=== PATIENT | male | born 1945 | race Caucasian/White ===

== ENCOUNTER → 2016-10-28 | Outpatient (REF) | payer MEDICARE ==
[2016-10-28 17:51] LABS: PERCENT SATURATION 26.5 % (19.7-37.4); TOTAL IRON BINDING CAPACITY 324 UG/DL (250-450)
[2016-10-28 17:55] LABS: FOLATE 10.7 NG/ML; VITAMIN B12 LEVEL 610 PG/ML
== END ==
LOC: M LAB REF 16:47
PROVIDERS: ATTEND Internal Medicine
DX: D64.9 Anemia, unspecified (principal); Z01.89 Encounter for other specified special examinations

== ENCOUNTER → 2016-12-31 | Outpatient (CLI) | payer MEDICARE ==
[~2016-12-31] VITALS: Ht 167.6 cm; Wt 79.4 kg
[~2016-12-31] MED LIST: ALLO15TA PO; AMLO5TAB2 PO; ASPI1TAB PO; BIMA01SOL OU; CALC1CAP31 PO; CARV6.25 PO; CRES10TA32 PO; EDARBI PB; FERR325T3 PO; FURO40TA2 PO; GABA-282 PO; HUMA100I5 SC; HYDR-3911 PO; INSULANT SC; ISOS60TA2 PO; LIDOCAINE 2% INJ 100 MG/5 ML SDV (FOR ANES.) As Ordered ONE; NS 1,000 ML IV ONE; OMEP40CA2 PO; PROPOFOL 500 MG/50 ML VIAL As Ordered ONE; VITA100067 PO; ZOLO50TA PO
--- NOTE | 2016-12-31 12:56 | ROOR ---
Patient Name: Wicho Haney Procedure Date: 12/31/2016 12:34 PM Date of : 1945 Age: 71 Room: [facility] Gender: Male Note Status: Finalized Procedure: Upper Endoscopy + Biopsies + SBB Indications: Iron deficiency anemia, Follow-up of Saeed's esophagus Providers: Jaylon Pelletier MD Referring MD: ELLIOTT PELLETIER JR, MD Requesting Provider: Medicines: Monitored Anesthesia Care Complications: No immediate complications. Procedure: Pre-Anesthesia Assessment: - The heart rate, respiratory rate, oxygen saturations, blood pressure, adequacy of pulmonary ventilation, and response to care were monitored throughout the procedure. The Endoscope was introduced through the mouth, and advanced to the second part of duodenum. The upper GI endoscopy was accomplished without difficulty. The patient tolerated the procedure well. Findings: The Z-line was irregular and was found 40 cm from the incisors. Multiple biopsies were obtained with cold forceps for evaluation to rule out Saeed's Esophagus randomly at the gastroesophageal junction. A medium-sized hiatal hernia was present. No other significant abnormalities were identified in a careful examination of the stomach. The exam of the duodenum was otherwise normal. Biopsies for histology were taken with a cold forceps in the first portion of the duodenum for evaluation of celiac disease. The exam was otherwise without abnormality. Impression: - Z-line irregular, 40 cm from the incisors. - Medium-sized hiatal hernia. - The examination was otherwise normal. - Multiple biopsies were obtained at the gastroesophageal junction. - Biopsies were taken with a cold forceps for evaluation of celiac disease. - The examination was otherwise normal. Recommendation: - Patient has a contact number available for emergencies. The signs and symptoms of potential delayed complications were discussed with the patient. Return to normal activities tomorrow. Written discharge instructions were provided to the patient. - High fiber diet. - Discharge patient to home. - Continue present medications. - Await pathology results. - Telephone GI clinic for pathology results in 1 week. - Follow an antireflux regimen. - Return to referring physician. - The findings and recommendations were discussed with the patient's family. Jaylon Pelletier MD Jaylon Pelletier MD 12/31/2016 12:56:29 PM This report has been signed electronically. Number of Addenda: 0 Note Initiated On: 12/31/2016 12:34 PM Estimated Blood Loss: Estimated blood loss: none.
--- NOTE | 2016-12-31 13:24 | ROOR ---
Patient Name: Wicho Haney Procedure Date: 12/31/2016 12:34 PM Date of : 1945 Age: 71 Room: [facility] Gender: Male Note Status: Finalized Procedure: Total Colonoscopy to Cecum + ileoscopy + Biopsy Polypectomy Indications: Iron deficiency anemia Providers: Jaylon Pelletier MD Referring MD: ELLIOTT PELLETIER JR, MD Requesting Provider: Medicines: Monitored Anesthesia Care Complications: No immediate complications. Procedure: Pre-Anesthesia Assessment: - The heart rate, respiratory rate, oxygen saturations, blood pressure, adequacy of pulmonary ventilation, and response to care were monitored throughout the procedure. The Colonoscope was introduced through the anus and advanced to the terminal ileum, with identification of the appendiceal orifice and IC valve. The colonoscopy was performed without difficulty. The patient tolerated the procedure well. The quality of the bowel preparation was excellent. Findings: The perianal and digital rectal examinations were normal. Non-bleeding internal hemorrhoids were found during retroflexion. The hemorrhoids were small and Grade I (internal hemorrhoids that do not prolapse). A small polyp was found in the cecum. The polyp was sessile. The polyp was removed with a cold biopsy forceps. Resection and retrieval were complete. Two sessile polyps were found in the hepatic flexure. The polyps were small in size. These polyps were removed with a cold biopsy forceps. Resection and retrieval were complete. The exam was otherwise without abnormality on direct and retroflexion views. The terminal ileum appeared normal. Impression: - Non-bleeding internal hemorrhoids. - One small polyp in the cecum, removed with a cold biopsy forceps. Resected and retrieved. - Two small polyps at the hepatic flexure, removed with a cold biopsy forceps. Resected and retrieved. - The examination was otherwise normal on direct and retroflexion views. - The examined portion of the ileum was normal. - The exam was otherwise normal to the cecum. Recommendation: - Patient has a contact number available for emergencies. The signs and symptoms of potential delayed complications were discussed with the patient. Return to normal activities tomorrow. Written discharge instructions were provided to the patient. - High fiber diet. - Discharge patient to home. - Continue present medications. - Await pathology results. - Telephone GI clinic for pathology results in 1 week. - Repeat colonoscopy in 5 years for surveillance based on pathology results. - Return to referring physician. - The findings and recommendations were discussed with the patient's family. Jaylon Pelletier MD Jaylon Pelletier MD 12/31/2016 1:24:02 PM This report has been signed electronically. Number of Addenda: 0 Note Initiated On: 12/31/2016 12:34 PM Estimated Blood Loss: Estimated blood loss: none.
[2016-12-31 13:53] VITALS: BP 131/65
== END | disposition home or self-care (01) ==
LOC: M OPP 11:50
PROVIDERS: ATTEND Internal Medicine Gastroenterology
DX: D50.9 Iron deficiency anemia, unspecified (principal); D12.0 Benign neoplasm of cecum; D12.3 Benign neoplasm of transverse colon; K64.0 First degree hemorrhoids; K22.8 Other specified diseases of esophagus; K44.9 Diaphragmatic hernia without obstruction or gangrene; K22.70 Barrett's esophagus without dysplasia; R19.5 Other fecal abnormalities; I12.9 Hypertensive chronic kidney disease with stage 1 through stage 4 chronic kidney disease, or unspecified chronic kidney disease; E78.5 Hyperlipidemia, unspecified; R01.1 Cardiac murmur, unspecified; E87.5 Hyperkalemia; R80.9 Proteinuria, unspecified; E11.9 Type 2 diabetes mellitus without complications; M10.9 Gout, unspecified; R12 Heartburn; M19.90 Unspecified osteoarthritis, unspecified site; F41.9 Anxiety disorder, unspecified; G47.30 Sleep apnea, unspecified; N18.3 Chronic kidney disease, stage 3 (moderate); N40.1 Benign prostatic hyperplasia with lower urinary tract symptoms; Z87.891 Personal history of nicotine dependence; Z91.041 Radiographic dye allergy status; Z79.82 Long term (current) use of aspirin; Z79.4 Long term (current) use of insulin; Z79.899 Other long term (current) drug therapy

== ENCOUNTER → 2017-04-13 | Outpatient (REF) | payer MEDICARE ==
[~2017-04-13] MED LIST changes: -LIDOCAINE 2% INJ 100 MG/5 ML SDV (FOR ANES.) As Ordered ONE; -NS 1,000 ML IV ONE; -PROPOFOL 500 MG/50 ML VIAL As Ordered ONE
== END ==
LOC: M SMT 13:17
PROVIDERS: ATTEND Nurse Practitioner Women's Health
DX: R35.0 Frequency of micturition (principal)
CPT/HCPCS: 51798; 81001; 87086; G0463

== ENCOUNTER → 2017-04-27 | Outpatient (CLI) | payer MEDICARE ==
--- NOTE | 2017-04-27 09:40 | REP ---
Clinical: Lung screening. History smoking. Comparison: Chest CT dated 11/29/2013 Technique: Axial low-dose noncontrast images from the thoracic inlet to the upper abdomen using lung screening technique. Findings: The lung norris are well-aerated. No consolidation, significant nodule or mass lesion is appreciated. No pleural effusion/reaction or pneumothorax. Tracheobronchial tree is patent. Mediastinum demonstrates mild atherosclerotic changes of the coronary arteries without cardiomegaly. Impression: Lung-RADS category I. No significant nodule or suspicious abnormality. Signed by David Alexandre MD 04/27/2017 09:31 A
== END ==
LOC: M RAD 09:12
PROVIDERS: ATTEND Internal Medicine
DX: Z12.2 Encounter for screening for malignant neoplasm of respiratory organs (principal); Z87.891 Personal history of nicotine dependence

== ENCOUNTER → 2017-12-07 | Outpatient (REF) | payer MEDICARE ==
[2017-12-07 16:15] LABS: BASO # 0.1 10^3/uL (0.0-0.2); BASO % 0.6 % (0.0-1.0); EOS # 0.3 10^3/uL (0.0-0.50); EOS % 3.2 % (0.0-3.0); HEMATOCRIT 35.4 % (42.0-52.0); HEMOGLOBIN 11.5 g/dl (13.5-17.5); IMMATURE GRANULOCYTE % 0.3 % (0-3.0); LYMPH # 1.1 10^3/uL (1.5-4.5); LYMPH % 12.4 % (24.0-44.0); MEAN CORPUSCULAR HGB CONC 32.5 g/dl (32.0-36.5); MEAN CORPUSCULAR VOLUME 95.4 fl (80.0-96.0); MONO # 0.7 10^3/uL (0.0-0.8); MONO % 7.8 % (0.0-5.0); NEUTROPHILS # 6.9 10^3/uL (1.8-7.7); NEUTROPHILS % 75.7 % (36.0-66.0); PLATELET COUNT, AUTOMATED 276 10^3/uL (150-450); RED BLOOD COUNT 3.71 10^6/uL (4.30-6.10); RED CELL DISTRIBUTION WIDTH 14.1 % (11.5-14.5); WHITE BLOOD COUNT 9.1 10^3/uL (4.0-10.0)
[2017-12-07 16:29] LABS: ESTIMATED AVERAGE GLUCOSE 148 MG/DL (60-110); HEMOGLOBIN A1c 6.8 %; VITAMIN B12 LEVEL 940 PG/ML
[2017-12-07 16:30] LABS: FOLATE 11.9 NG/ML
[2017-12-07 16:35] LABS: ALBUMIN/GLOBULIN RATIO 1.25 (1.00-1.93); ALKALINE PHOSPHATASE 105 U/L (45-117); ALT/SGPT 21 U/L (12-78); ANION GAP 9 MEQ/L (8-16); AST/SGOT 27 U/L (7-37); BILIRUBIN,TOTAL 0.4 MG/DL (0.2-1.0); BLOOD UREA NITROGEN 60 MG/DL (7-18); CALCIUM LEVEL 8.5 MG/DL (8.8-10.2); CARBON DIOXIDE LEVEL 30 MEQ/L (21-32); CHLORIDE LEVEL 103 MEQ/L (98-107); CREATININE FOR GFR 2.36 MG/DL (0.70-1.30); GLOMERULAR FILTRATION RATE 29.2 (>42); GLUCOSE, FASTING 101 MG/DL (70-100); POTASSIUM SERUM 4.4 MEQ/L (3.5-5.1); RHEUMATOID FACTOR QUANT < 10.0 IU/ML (<15.0); SODIUM LEVEL 142 MEQ/L (136-145); TOTAL PROTEIN 7.2 GM/DL (6.4-8.2)
[2017-12-07 21:57] LABS: ERYTHROCYTE SEDIMENTATION RATE 51 mm/hr (0-20)
[2017-12-09 13:21] LABS: ALBUMIN 4.19 GM/DL (3.29-5.55); ALBUMIN % 58.2 % (55.8-66.1); ALPHA-1-GLOBULIN % 5.4 % (2.9-4.9); ALPHA-1-GLOBULINS 0.39 GM/DL (0.17-0.41); ALPHA-2-GLOBULINS 1.14 GM/DL (0.42-0.99); ALPHA-2-GLOBULINS % 15.9 % (7.1-11.8); BETA-1-GLOBULINS 0.45 GM/DL (0.28-0.60); BETA-1-GLOBULINS % 6.3 % (4.7-7.2); BETA-2-GLOBULINS 0.42 GM/DL (0.19-0.55); BETA-2-GLOBULINS % 5.9 % (3.2-6.5); GAMMA GLOBULIN % 8.3 % (11.1-18.8)
[2017-12-12 14:28] LABS: ANTINUCLEAR ANTIBODIES DIRECT Negative (Negative); VITAMIN B1 LEVEL WHOLE BLOOD 146.2 nmol/L (66.5-200.0); VITAMIN B6,PYRIDOXAL PHOSPHATE 5.5 ug/L (5.3-46.7); VITAMIN E(ALPHA TOCOPHEROL) 8.7 mg/L (9.0-29.0); VITAMIN E(GAMMA TOCOPHEROL) 1.5 mg/L (0.5-4.9)
== END ==
LOC: M LABDRAW1 12:11
DX: G62.9 Polyneuropathy, unspecified (principal); Z79.899 Other long term (current) drug therapy
CPT/HCPCS: 82746

== ENCOUNTER → 2018-01-15 | Outpatient (CLI) | payer MEDICARE | LOC: M PLARAD 13:40 | DX: R55 Syncope and collapse (principal); M54.14 Radiculopathy, thoracic region; M54.5 Low back pain | CPT/HCPCS: 70551 ==

== ENCOUNTER → 2018-04-23 | Outpatient (REF) | payer MEDICARE ==
[2018-04-23 13:31] LABS: AMMONIA 36 uMOL/L (<32)
== END ==
LOC: M LABNEURO 10:54
DX: R25.1 Tremor, unspecified (principal)
CPT/HCPCS: 82140

== ENCOUNTER → 2018-11-05 | Outpatient (REF) | payer MEDICARE ==
[~2018-11-05] MED LIST changes: -ALLO15TA PO; +ALLO300T2 PO; -AMLO5TAB2 PO; +AMLO5TAB6 PO; -ASPI1TAB PO; +ASPI81TA26 PO; +CRES10TA PO; -CRES10TA32 PO; -GABA-282 PO; +GABA-843 PO
[2018-11-05 13:39] LABS: PERCENT SATURATION 12.1 % (19.7-50.0)
== END ==
LOC: M LAB REF 13:05
PROVIDERS: ATTEND Internal Medicine
DX: D64.9 Anemia, unspecified (principal)

== ENCOUNTER → 2018-11-10 | Outpatient (REF) | payer MEDICARE ==
[2018-11-10 19:02] LABS: URIC ACID 4.9 MG/DL (3.5-7.2)
[2018-11-10 19:16] LABS: PTH INTACT 83.2 PG/ML (18.5-88.0)
== END ==
LOC: M LAB REF 17:08
PROVIDERS: ATTEND Internal Medicine
DX: N18.4 Chronic kidney disease, stage 4 (severe) (principal); D64.9 Anemia, unspecified

== ENCOUNTER → 2019-02-15 | Outpatient (REF) | payer MEDICARE ==
[2019-02-15 18:01] LABS: PERCENT SATURATION 17.3 % (19.7-50.0)
== END ==
LOC: M LAB REF 16:59
PROVIDERS: ATTEND Internal Medicine
DX: D64.9 Anemia, unspecified (principal)

== ENCOUNTER → 2019-03-02 | Outpatient (CLI) | payer MEDICARE ==
[~2019-03-02] MED LIST changes: -OMEP40CA2 PO; +OMEP40CA97 PO
--- NOTE | 2019-03-02 10:20 | REP ---
Gastric emptying study: Imaging is performed at 2-minute intervals for 90 minutes after having the patient ingest to scrambled eggs with 6 ounces and 6 ounces of water radiolabeled with 1.06 l millicuries of technetium 99M sulfur colloid. The T 1/2 of gastric emptying is extrapolated to be 151 minutes. Normal T1/2 is 90 minutes. Impression: Prolonged gastric emptying. Electronically Signed by Ned Govea MD 03/02/2019 10:12 A
== END ==
LOC: M RAD 07:32
PROVIDERS: ATTEND Internal Medicine Gastroenterology
DX: K31.84 Gastroparesis (principal)
CPT/HCPCS: 78264; A9541

== ENCOUNTER → 2019-04-05 | Outpatient (REF) | payer MEDICARE ==
[2019-04-05 12:54] LABS: BASO % 0.3 % (0.0-1.0); EOS # 0.3 10^3/uL (0.0-0.5); EOS % 3.7 % (0.0-3.0); HEMATOCRIT 32.2 % (42.0-52.0); HEMOGLOBIN 10.4 g/dl (13.5-17.5); LYMPH # 0.6 10^3/uL (1.5-5.0); LYMPH % 7.4 % (24.0-44.0); MEAN CORPUSCULAR HEMOGLOBIN 31.5 pg (27.0-33.0); MEAN CORPUSCULAR HGB CONC 32.3 g/dl (32.0-36.5); MEAN CORPUSCULAR VOLUME 97.6 fl (80.0-96.0); MONO # 0.6 10^3/uL (0.0-0.8); MONO % 6.7 % (0.0-5.0); NEUTROPHILS % 81.7 % (36.0-66.0); PLATELET COUNT, AUTOMATED 213 10^3/uL (150-450); WHITE BLOOD COUNT 8.6 10^3/uL (4.0-10.0)
[2019-04-05 13:28] LABS: ALBUMIN 3.7 GM/DL (3.2-5.2); BILIRUBIN,TOTAL 0.6 MG/DL (0.2-1.0); CALCIUM LEVEL 8.7 MG/DL (8.8-10.2); CREATININE FOR GFR 2.78 MG/DL (0.70-1.30); GLOMERULAR FILTRATION RATE 24.1 (>42); POTASSIUM SERUM 4.2 MEQ/L (3.5-5.1)
== END ==
LOC: M LABNEURO 11:53
PROVIDERS: ATTEND Psychiatry & Neurology Neurology
DX: G25.3 Myoclonus (principal); E72.29 Other disorders of urea cycle metabolism

== ENCOUNTER → 2019-11-16 | Outpatient (REF) | payer MEDICARE ==
[2019-11-16 13:30] LABS: PERCENT SATURATION 20.1 % (19.7-50.0)
== END ==
LOC: M LAB REF 12:20
PROVIDERS: ATTEND Internal Medicine
DX: D64.9 Anemia, unspecified (principal)

== ENCOUNTER → 2020-03-16 | Outpatient (CLI) | payer MEDICARE ==
[~2020-03-16] MED LIST changes: +AMLO1TAB24 PO; -AMLO5TAB6 PO
--- NOTE | 2020-03-26 16:50 | REP ---
CT CHEST WITHOUT CONTRAST: LOW-DOSE SCREENING EXAM HISTORY: Personal history of nicotine dependence. COMPARISON: Chest CT studies dated 04/27/2007 and 11/29/2013. CT FINDINGS: Preliminary digital payroll examiner radiograph shows mild hyperinflation. There is no evidence of infiltrate, mass, or significant pulmonary nodule. Extensive vascular calcification is again noted. IMPRESSION: Lung-RADS Category 1 findings. Repeat screening exam suggested in one year. MTDD
== END ==
LOC: M RAD 11:25
PROVIDERS: ATTEND Internal Medicine
DX: Z12.2 Encounter for screening for malignant neoplasm of respiratory organs (principal); Z87.891 Personal history of nicotine dependence

== ENCOUNTER → 2020-10-19 | Outpatient (REF) | payer MEDICARE ==
[~2020-10-19] MED LIST changes: +GABA-282 PO; -GABA-843 PO; +ISOS1TAB36 PO; -ISOS60TA2 PO
[2020-10-22 18:03] LABS: FOLATE 8.7 NG/ML
== END ==
LOC: M LAB REF 16:32
PROVIDERS: ATTEND Internal Medicine
DX: R41.3 Other amnesia (principal)

== ENCOUNTER → 2020-12-07 | Outpatient (CLI) | payer MEDICARE ==
[~2020-12-07] MED LIST changes: +OMEP40CA4 PO; -OMEP40CA97 PO
--- NOTE | 2020-12-07 11:18 | REP ---
INDICATION: CALCULIS OF KIDNEY. COMPARISON: Multiple the latest 10/25/2012 TECHNIQUE: Noncontrast enhanced stone protocol technique secondary to renal calculi. FINDINGS: The lung bases are clear. Limited evaluation of the solid intra-abdominal organs and gallbladder show no gross abnormalities or significant changes. Limited evaluation of the pancreas and adrenal glands show no gross abnormalities or significant changes. Limited evaluation of the kidneys shows an exophytic right renal cyst arising from the interpolar region which is rounded smoothly marginated and today having a maximal diameter of 3.6 cm. Previously, this had a maximal diameter of 1.4 cm. Once again, has near water density Hounsfield unit readings. There is no nephroureterolithiasis, hydronephrosis, or hydroureter. 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 There does appear to be mild prostatomegaly. Limited evaluation of the bowel loops and the mesenteries show no gross abnormalities or significant changes from the prior exam. There is no evidence of free fluid or free air. Once again, there is evidence of colonic interposition to the liver. Limited evaluation of the abdominal aorta and para-aortic regions show no significant changes from the prior exam. Bone window technique throughout the examination shows relatively stable appearing spinal degenerative changes. There is a grade 1 L4 upon L5 spondylolisthesis. IMPRESSION: 1. Increased size in the Bosniak class 1 right renal cyst as described above. 2. No abnormal calcifications in the collecting system of either kidney as described above. 3. Other findings as described above. <Electronically signed by Braeden Haley > 12/07/20 0151
== END ==
LOC: M RAD 09:18
PROVIDERS: ATTEND Internal Medicine Nephrology
DX: N20.0 Calculus of kidney (principal); R31.9 Hematuria, unspecified; N28.1 Cyst of kidney, acquired

== ENCOUNTER → 2021-01-25 | Outpatient (CLI) | payer MEDICARE ==
[~2021-01-25] MED LIST changes: +AMBI10TA PO; +ASPI325T54 PO; +ERGO500029 PO; +JARD1TAB3 PO; +LOSA100T50 PO; +PANT40TA29 PO; +PLAV1TAB2 PO; +SERT50TA29 PO; +TRES1INJ2 SC; +ZOFR4TAB16 PO
== END ==
LOC: M LABSMTC 10:53
PROVIDERS: ATTEND Anesthesiology
DX: Z01.812 Encounter for preprocedural laboratory examination (principal); Z20.822 Contact with and (suspected) exposure to COVID-19

== ENCOUNTER → 2021-03-01 | Outpatient (REF) | payer MEDICARE | LOC: M LAB REF 13:57 | PROVIDERS: ATTEND Physician Assistant Medical | DX: H70.13 Chronic mastoiditis, bilateral (principal) ==

== ENCOUNTER → 2021-03-06 | Outpatient (CLI) | payer MEDICARE ==
[2021-03-06 11:36] LABS: BASO # 0.1 10^3/uL (0.0-0.2); BASO % 0.7 % (0.0-1.0); EOS # 0.2 10^3/uL (0.0-0.5); EOS % 2.5 % (0.0-3.0); LYMPH # 0.8 10^3/uL (1.5-5.0); LYMPH % 9.9 % (24.0-44.0); MEAN CORPUSCULAR HEMOGLOBIN 32.2 pg (27.0-33.0); MEAN CORPUSCULAR HGB CONC 33.3 g/dl (32.0-36.5); MEAN CORPUSCULAR VOLUME 96.5 fl (80.0-96.0); MONO # 0.5 10^3/uL (0.0-0.8); MONO % 5.6 % (2.0-8.0); NEUTROPHILS # 6.5 10^3/uL (1.5-8.5); NEUTROPHILS % 80.9 % (36.0-66.0); PLATELET COUNT, AUTOMATED 251 10^3/uL (150-450); RED BLOOD COUNT 3.73 10^6/uL (4.30-6.10)
[2021-03-06 12:09] LABS: ALT/SGPT 39 U/L (12-78); BILIRUBIN,TOTAL 0.6 MG/DL (0.2-1.0); BLOOD UREA NITROGEN 52 MG/DL (7-18); CALCIUM LEVEL 8.3 MG/DL (8.8-10.2); CARBON DIOXIDE LEVEL 28 MEQ/L (21-32); CHLORIDE LEVEL 104 MEQ/L (98-107); CREATININE FOR GFR 2.33 MG/DL (0.70-1.30); FOLATE 9.8 NG/ML; GLOMERULAR FILTRATION RATE 29.4 (>42); GLUCOSE, FASTING 211 MG/DL (70-100); POTASSIUM SERUM 4.2 MEQ/L (3.5-5.1); RHEUMATOID FACTOR QUANT < 10.0 IU/ML (<15.0); SODIUM LEVEL 139 MEQ/L (136-145); TOTAL PROTEIN 5.9 GM/DL (6.4-8.2); VITAMIN B12 LEVEL 608 PG/ML
[2021-03-06 12:22] LABS: ERYTHROCYTE SEDIMENTATION RATE 54 mm/hr (0-20)
== END ==
LOC: M LAB 10:37
PROVIDERS: ATTEND Psychiatry & Neurology Neurology
DX: R41.3 Other amnesia (principal); G25.9 Extrapyramidal and movement disorder, unspecified

== ENCOUNTER → 2021-03-22 | Outpatient (CLI) | payer MEDICARE ==
[~2021-03-22] MED LIST changes: +HYDR10TAB PO
== END ==
LOC: M LABSMTC 10:11
PROVIDERS: ATTEND Anesthesiology
DX: Z01.812 Encounter for preprocedural laboratory examination (principal); Z20.822 Contact with and (suspected) exposure to COVID-19

== ENCOUNTER 2021-03-27 07:45 | Day surgery (SDC) | payer MEDICARE ==
[~2021-03-27] VITALS: Ht 167.6 cm; Wt 71.2 kg
[~2021-03-27 07:45] MED LIST changes: +LIDOCAINE 2% 100MG/5ML SDV (FOR ANES.) As Ordered ONE; +NS 1,000 ML IV ONE; +fentaNYL 100 MCG/2 ML INJECTION (J3010) As Ordered ONE; +propofoL 500 MG/50 ML VIAL As Ordered ONE
[2021-03-27] MEDS ORDERED: ASPI-255 PO (08:12)
[2021-03-27] MEDS ORDERED: TERA2CAP3 PO (08:30)
[2021-03-27] MEDS ORDERED: ONDANSETRON 4MG/2ML VIAL As Ordered ONE (08:52)
[2021-03-27] MEDS ORDERED: MIDAZOLAM INJ 2MG/2ML VIAL (J2250 PER 1MG) As Ordered ONE (08:53)
[2021-03-27] MEDS ORDERED: hydrALAZINE 20MG/ML 1ML VIAL (J0360 PER 20MG) As Ordered ONE (09:12)
--- NOTE | 2021-03-27 09:17 | ROOR ---
Patient Name: Wicho Haney Procedure Date: 03/27/2021 8:55 AM Date of : 1945 Age: 75 Room: [facility] Gender: Male Note Status: Finalized Procedure: Upper Endoscopy + Biopsies Indications: Heartburn, Follow-up of Saeed's esophagus Providers: Jaylon Pelletier MD Referring MD: ELLIOTT PELLETIER JR, MD Requesting Provider: Medicines: Monitored Anesthesia Care Complications: No immediate complications. Procedure: Pre-Anesthesia Assessment: - The heart rate, respiratory rate, oxygen saturations, blood pressure, adequacy of pulmonary ventilation, and response to care were monitored throughout the procedure. The Endoscope was introduced through the mouth, and advanced to the second part of duodenum. The upper GI endoscopy was accomplished without difficulty. The patient tolerated the procedure well. Findings: The Z-line was regular and was found 40 cm from the incisors. Multiple biopsies were obtained with cold forceps for evaluation to rule out Saeed's Esophagus randomly at the gastroesophageal junction. A small hiatal hernia was present. No other significant abnormalities were identified in a careful examination of the stomach. The exam of the duodenum was otherwise normal. Impression: - Z-line regular, 40 cm from the incisors. - Small hiatal hernia. - Multiple biopsies were obtained at the gastroesophageal junction. - The examination was otherwise normal. Recommendation: - Patient has a contact number available for emergencies. The signs and symptoms of potential delayed complications were discussed with the patient. Return to normal activities tomorrow. Written discharge instructions were provided to the patient. - High fiber diet. - Discharge patient to home. - Follow an antireflux regimen. - Continue present medications. - Await pathology results. - Telephone GI clinic for pathology results in 1 week. - Return to referring physician. - The findings and recommendations were discussed with the patient. Procedure Code(s): --- Professional --- 79050, Esophagogastroduodenoscopy, flexible, transoral; with biopsy, single or multiple Diagnosis Code(s): --- Professional --- K22.70, Saeed's esophagus without dysplasia K44.9, Diaphragmatic hernia without obstruction or gangrene R12, Heartburn CPT copyright 2019 [employer]. All rights reserved. The codes documented in this report are preliminary and upon pet feeder review may be revised to meet current compliance requirements. Jaylon Pelletier MD Jaylon Pelletier MD 03/27/2021 9:16:38 AM Electronically signed by Jaylon Pelletier MD Number of Addenda: 0 Note Initiated On: 03/27/2021 8:55 AM Estimated Blood Loss: Estimated blood loss: none.
--- NOTE | 2021-03-27 09:37 | ROOR ---
Patient Name: Wicho Haney Procedure Date: 03/27/2021 8:55 AM Date of : 1945 Age: 75 Room: [facility] Gender: Male Note Status: Finalized Procedure: Total Colonoscopy to Cecum Indications: High risk colon cancer surveillance: Personal history of colonic polyps, Last colonoscopy: 2016 Providers: Jaylon Pelletier MD Referring MD: ELLIOTT PELLETIER JR, MD Requesting Provider: Medicines: Monitored Anesthesia Care Complications: No immediate complications. Procedure: Pre-Anesthesia Assessment: - The heart rate, respiratory rate, oxygen saturations, blood pressure, adequacy of pulmonary ventilation, and response to care were monitored throughout the procedure. The Colonoscope was introduced through the anus and advanced to the cecum, identified by appendiceal orifice and ileocecal valve. The colonoscopy was performed without difficulty. The patient tolerated the procedure well. The quality of the bowel preparation was good. Findings: The perianal and digital rectal examinations were normal. Non-bleeding internal hemorrhoids were found during retroflexion. The hemorrhoids were small and Grade I (internal hemorrhoids that do not prolapse). No other significant abnormalities were identified in a careful examination of the remainder of the colon. The exam was otherwise without abnormality on direct and retroflexion views. Impression: - Non-bleeding internal hemorrhoids. - The examination was otherwise normal on direct and retroflexion views. - No specimens collected. - The exam was otherwise normal to the cecum. Recommendation: - Patient has a contact number available for emergencies. The signs and symptoms of potential delayed complications were discussed with the patient. Return to normal activities tomorrow. Written discharge instructions were provided to the patient. - High fiber diet. - Discharge patient to home. - Continue present medications. - Repeat colonoscopy in 5 years for surveillance. - Return to referring physician. - The findings and recommendations were discussed with the patient. Procedure Code(s): --- Professional --- G0105, Colorectal cancer screening; colonoscopy on individual at high risk Diagnosis Code(s): --- Professional --- Z86.010, Personal history of colonic polyps K64.0, First degree hemorrhoids CPT copyright 2019 [employer]. All rights reserved. The codes documented in this report are preliminary and upon supervisor rides review may be revised to meet current compliance requirements. Jaylon Pelletier MD Jaylon Pelletier MD 03/27/2021 9:37:12 AM Electronically signed by Jaylon Pelletier MD Number of Addenda: 0 Note Initiated On: 03/27/2021 8:55 AM Estimated Blood Loss: Estimated blood loss: none.
[2021-03-27 09:55] VITALS: BP 132/60
== END 2021-03-27 10:10 | disposition home or self-care (01) ==
LOC: M OPP 07:45
PROVIDERS: ATTEND Internal Medicine Gastroenterology
DX: Z12.11 Encounter for screening for malignant neoplasm of colon (principal); Z86.010 Personal history of colon polyps; K64.0 First degree hemorrhoids; K22.70 Barrett's esophagus without dysplasia; K44.9 Diaphragmatic hernia without obstruction or gangrene; R12 Heartburn; Z79.82 Long term (current) use of aspirin; Z79.899 Other long term (current) drug therapy; Z91.040 Latex allergy status; F17.290 Nicotine dependence, other tobacco product, uncomplicated
CPT/HCPCS: 43239; 88305; G0105; J0360; J2250; J2405; J3010

== ENCOUNTER → 2021-04-02 | Outpatient (REF) | payer MEDICARE ==
[~2021-04-02] MED LIST changes: +ASPI-255 PO; -LIDOCAINE 2% 100MG/5ML SDV (FOR ANES.) As Ordered ONE; -NS 1,000 ML IV ONE; +TERA2CAP3 PO; -fentaNYL 100 MCG/2 ML INJECTION (J3010) As Ordered ONE; -propofoL 500 MG/50 ML VIAL As Ordered ONE
[2021-04-02 13:42] LABS: APPEARANCE, URINE CLEAR (CLEAR); BACTERIA, URINE AUTO NEGATIVE (NEGATIVE); BILIRUBIN, URINE AUTO NEGATIVE (NEGATIVE); BLOOD, URINE BLOOD NEGATIVE (NEGATIVE); COLOR, URINE YELLOW (YELLOW); GLUCOSE, URINE (UA) AUTO 3+ mg/dL (NEGATIVE); KETONE, URINE AUTO NEGATIVE (NEGATIVE); LEUKOCYTE ESTERASE, URINE AUTO NEGATIVE (NEGATIVE); MUCUS, URINE SMALL (NEGATIVE); NITRITE, URINE AUTO NEGATIVE (NEGATIVE); PROTEIN, URINE AUTO 3+ mg/dL (NEGATIVE); RBC, URINE AUTO 1 /HPF (0-3); SPECIFIC GRAVITY URINE AUTO 1.015 (1.002-1.035); SQUAMOUS EPITHELIAL CELL UR AU 0 /HPF (0-6); UROBILINOGEN, URINE AUTO 0.2 mg/dL (0.0-2.0); WBC, URINE AUTO 2 /HPF (0-3)
== END ==
LOC: M SMT 12:51
PROVIDERS: ATTEND Nurse Practitioner Women's Health
DX: R31.29 Other microscopic hematuria (principal)
CPT/HCPCS: 81001; 87086; G0463

== ENCOUNTER → 2021-04-24 | Outpatient (CLI) | payer MEDICARE | LOC: M LAB 07:37 | PROVIDERS: ATTEND Psychiatry & Neurology Neurology | DX: R25.1 Tremor, unspecified (principal); R74.8 Abnormal levels of other serum enzymes ==

== ENCOUNTER → 2021-07-23 | Outpatient (CLI) | payer MEDICARE ==
[~2021-07-23] MED LIST changes: +LOSA100T45 PO; -LOSA100T50 PO
== END ==
LOC: M RAD 11:00
PROVIDERS: ATTEND Internal Medicine
DX: Z12.2 Encounter for screening for malignant neoplasm of respiratory organs (principal); Z87.891 Personal history of nicotine dependence; J84.10 Pulmonary fibrosis, unspecified

== ENCOUNTER → 2021-08-26 | Outpatient (REF) | payer MEDICARE | LOC: M LAB REF 16:16 | PROVIDERS: ATTEND Physician Assistant Medical | DX: H92.13 Otorrhea, bilateral (principal) ==

== ENCOUNTER → 2021-09-02 | Outpatient (CLI) | payer MEDICARE | LOC: M RAD 10:52 | PROVIDERS: ATTEND Physician Assistant Medical | DX: H92.13 Otorrhea, bilateral (principal); H74.32 Partial loss of ear ossicles ==

== ENCOUNTER → 2021-10-01 | Outpatient (REF) | payer MEDICARE ==
[2021-10-01 17:54] LABS: BACTERIA, URINE AUTO NEGATIVE (NEGATIVE); RBC, URINE AUTO 1 /HPF (0-3); SQUAMOUS EPITHELIAL CELL UR AU 0 /HPF (0-6); WBC, URINE AUTO 1 /HPF (0-3)
== END ==
LOC: M LAB REF 16:50
PROVIDERS: ATTEND Physician Assistant Medical
DX: R31.9 Hematuria, unspecified (principal)

== ENCOUNTER → 2021-11-08 | Outpatient (REF) | payer MEDICARE | LOC: M LAB REF 16:08 | PROVIDERS: ATTEND Nurse Practitioner Women's Health | DX: H92.12 Otorrhea, left ear (principal) ==

== ENCOUNTER 2021-12-31 11:20 | Observation (INO) | payer MEDICARE ==
[~2021-12-31] VITALS: Ht 167.6 cm; Wt 81.3 kg
[2021-12-31] MEDS ORDERED: CARB25TA9 PO (12:48)
[2021-12-31 12:50] LABS: VENOUS BASE EXCESS -0.5 (-2.0-2.0); VENOUS HCO3 21.3 MEQ/L (23.0-27.0); VENOUS O2 SATURATION 92.2 % (60.0-80.0); VENOUS PARTIAL PRESSURE O2 55.1 mmHg (30.0-50.0); VENOUS PH 7.514 UNITS (7.330-7.430); VENOUS TOTAL CO2 22.1 MEQ/L (24.0-28.0)
[2021-12-31 13:00] LABS: BASO # 0.1 10^3/uL (0.0-0.2); BASO % 0.7 % (0.0-1.0); EOS # 0.1 10^3/uL (0.0-0.5); EOS % 0.4 % (0.0-3.0); HEMATOCRIT 35.7 % (42.0-52.0); HEMOGLOBIN 12.1 g/dl (13.5-17.5); LYMPH # 0.8 10^3/uL (1.5-5.0); LYMPH % 6.5 % (24.0-44.0); MEAN CORPUSCULAR HEMOGLOBIN 31.6 pg (27.0-33.0); MEAN CORPUSCULAR HGB CONC 33.9 g/dl (32.0-36.5); MEAN CORPUSCULAR VOLUME 93.2 fl (80.0-96.0); MONO # 0.5 10^3/uL (0.0-0.8); MONO % 4.3 % (2.0-8.0); NEUTROPHILS # 10.5 10^3/uL (1.5-8.5); NEUTROPHILS % 87.8 % (36.0-66.0); PLATELET COUNT, AUTOMATED 245 10^3/uL (150-450); RED BLOOD COUNT 3.83 10^6/uL (4.30-6.10); WHITE BLOOD COUNT 11.9 10^3/uL (4.0-10.0)
[2021-12-31 13:33] LABS: OSMOLALITY SERUM 292 MOSM/KG (280-301)
[2021-12-31 13:36] LABS: ALBUMIN 3.4 GM/DL (3.2-5.2); ALT/SGPT 20 U/L (12-78); BILIRUBIN,DIRECT 0.2 MG/DL (0.0-0.2); BILIRUBIN,TOTAL 0.7 MG/DL (0.2-1.0); BLOOD UREA NITROGEN 38 MG/DL (7-18); CARBON DIOXIDE LEVEL 24 MEQ/L (21-32); CHLORIDE LEVEL 105 MEQ/L (98-107); CREATININE FOR GFR 2.53 MG/DL (0.70-1.30); GLOMERULAR FILTRATION RATE 26.6 (>42); GLUCOSE, FASTING 170 MG/DL (70-100); POTASSIUM SERUM 3.7 MEQ/L (3.5-5.1); SODIUM LEVEL 136 MEQ/L (136-145); TOTAL PROTEIN 6.6 GM/DL (6.4-8.2)
[2021-12-31 13:39] LABS: RSV AMPLIFICATION NEGATIVE (NEGATIVE)
[2021-12-31] MEDS ORDERED: FURO20TA2 PO (15:34)
[2021-12-31] MEDS ORDERED: HOME MED LIST COMPLETE! XX SCH ×2 (15:35→17:55)
[2021-12-31] MEDS ORDERED: GLUCOSE 4GM CHEW TABLET PO PRN (17:00)
[2021-12-31] MEDS ORDERED: GLUCAGON INJ 1MG VIAL SC PRN (17:00)
[2021-12-31] MEDS ORDERED: DEXTROSE 50% 50 ML SYRINGE IV PRN (17:00)
[2021-12-31 17:25] VITALS: BP 208/88
[2021-12-31 17:30] VITALS: BP 178/80
[2021-12-31] MEDS: INSULIN LISPRO (NovoLOG) PER UNIT SC SCH (17:30)
[2021-12-31 18:21] LABS: ERYTHROCYTE SEDIMENTATION RATE 44 mm/hr (0-20)
[2021-12-31] MEDS ORDERED: ONDANSETRON 4MG 2ML VIAL IV PRN (18:45)
[2021-12-31 19:35] VITALS: BP 202/80
[2021-12-31] MEDS: SINEMET 25-100 MG TAB PO SCH (20:22)
[2021-12-31] MEDS: amLODIPine 5 MG TAB PO SCH (20:22)
[2021-12-31] MEDS: **hydrALAZINE** 10 MG TAB PO SCH (20:22)
[2021-12-31] MEDS: zolPIDEM TARTRATE 5 MG TAB PO SCH (20:23)
[2021-12-31] MEDS: LOSARTAN 50MG TABLET PO SCH (20:23)
[2021-12-31 20:39] LABS: C REACTIVE PROTEIN QUANTITATIV < 0.30 MG/DL (0.00-0.30)
[2021-12-31 21:30] VITALS: BP 170/76
[2022-01-01] VITALS (10 sets, daily range): BP systolic 140–208; BP diastolic 67–98
[2022-01-01] MEDS ORDERED: hydrALAZINE 20MG/ML 1ML VIAL (J0360 PER 20MG) IV ONE (03:55)
[2022-01-01] MEDS ORDERED: hydrALAZINE 20MG/ML 1ML VIAL (J0360 PER 20MG) As Ordered ONE (03:58)
[2022-01-01 07:01] LABS: BILIRUBIN,TOTAL 0.7 MG/DL (0.2-1.0); CREATININE FOR GFR 2.33 MG/DL (0.70-1.30); GLOMERULAR FILTRATION RATE 29.3 (>42); POTASSIUM SERUM 3.8 MEQ/L (3.5-5.1); TOTAL PROTEIN 5.7 GM/DL (6.4-8.2)
[2022-01-01] MEDS: INSULIN LISPRO (NovoLOG) PER UNIT SC SCH ×4 (07:30→20:54)
[2022-01-01 07:54] LABS: BASO # 0.1 10^3/uL (0.0-0.2); BASO % 0.8 % (0.0-1.0); EOS # 0.2 10^3/uL (0.0-0.5); EOS % 2.3 % (0.0-3.0); HEMATOCRIT 35.5 % (42.0-52.0); LYMPH # 1.1 10^3/uL (1.5-5.0); LYMPH % 13.1 % (24.0-44.0); MEAN CORPUSCULAR HEMOGLOBIN 32.3 pg (27.0-33.0); MEAN CORPUSCULAR HGB CONC 33.8 g/dl (32.0-36.5); MEAN CORPUSCULAR VOLUME 95.4 fl (80.0-96.0); MONO # 0.8 10^3/uL (0.0-0.8); NEUTROPHILS # 6.4 10^3/uL (1.5-8.5); NEUTROPHILS % 74.5 % (36.0-66.0); PLATELET COUNT, AUTOMATED 244 10^3/uL (150-450); RED BLOOD COUNT 3.72 10^6/uL (4.30-6.10); WHITE BLOOD COUNT 8.6 10^3/uL (4.0-10.0)
[2022-01-01] MEDS: ASPIRIN 325 MG TAB PO SCH (08:41)
[2022-01-01] MEDS: allopurinoL 300 MG TAB PO SCH (08:41)
[2022-01-01] MEDS: ROSUVASTATIN 10 MG TAB (CRESTOR) PO SCH (08:42)
[2022-01-01] MEDS: CALCITRIOL 0.25 MCG CAP (S0169) PO SCH (08:42)
[2022-01-01] MEDS: **hydrALAZINE** 10 MG TAB PO SCH ×2 (08:42→20:53)
[2022-01-01] MEDS: PANTOPRAZOLE 40MG TAB (PROTONIX) PO SCH (08:42)
[2022-01-01] MEDS: LOSARTAN 50MG TABLET PO SCH (08:42)
[2022-01-01] MEDS: CLOPIDOGREL 75 MG TAB PO SCH (08:42)
[2022-01-01] MEDS: amLODIPine 5 MG TAB PO SCH ×2 (08:43→20:54)
[2022-01-01] MEDS: SINEMET 25-100 MG TAB PO SCH ×3 (08:43→20:54)
[2022-01-01] MEDS: FERROUS SULFATE 325MG TAB PO SCH (08:43)
[2022-01-01] MEDS: LEVEMIR (INSULIN DETEMIR) 1 UNITS/0.01ML SC SCH (08:43)
[2022-01-01] MEDS ORDERED: LOSARTAN 50MG TABLET PO SCH (09:00)
[2022-01-01] MEDS ORDERED: ASPIRIN 81MG ENTERIC TABLET PO SCH (09:00)
[2022-01-01] MEDS ORDERED: ACETAMINOPHEN 325 MG TAB PO PRN (09:15)
[2022-01-01] MEDS ORDERED: JARD1TAB PO (11:19)
[2022-01-01] MEDS ORDERED: LASI20TA3 PO (11:19)
[2022-01-01] MEDS ORDERED: FLOM0.4C39 PO (11:19)
[2022-01-01] MEDS ORDERED: LR 500 ML IV ONE (16:00)
[2022-01-01] MEDS ORDERED: LACTATED RINGER'S 1000 ML IV ONE (16:05)
[2022-01-01] MEDS ORDERED: METOCLOPRAMIDE INJ 10MG/2ML VIAL (J2765 PER 1) IV ONE (20:15)
[2022-01-01] MEDS: zolPIDEM TARTRATE 5 MG TAB PO SCH (20:53)
[2022-01-02] VITALS: BP 156/84
[2022-01-02 04:00] VITALS: BP 155/78
[2022-01-02] MEDS: INSULIN LISPRO (NovoLOG) PER UNIT SC SCH (07:59)
[2022-01-02 08:00] VITALS: BP 186/80
[2022-01-02] MEDS: LEVEMIR (INSULIN DETEMIR) 1 UNITS/0.01ML SC SCH (08:26)
[2022-01-02] MEDS: SINEMET 25-100 MG TAB PO SCH (08:27)
[2022-01-02] MEDS: PANTOPRAZOLE 40MG TAB (PROTONIX) PO SCH (08:27)
[2022-01-02] MEDS: ASPIRIN 325 MG TAB PO SCH (08:27)
[2022-01-02] MEDS: CALCITRIOL 0.25 MCG CAP (S0169) PO SCH (08:27)
[2022-01-02] MEDS: FERROUS SULFATE 325MG TAB PO SCH (08:27)
[2022-01-02] MEDS: LOSARTAN 50MG TABLET PO SCH (08:28)
[2022-01-02] MEDS: allopurinoL 300 MG TAB PO SCH (08:29)
[2022-01-02] MEDS: CLOPIDOGREL 75 MG TAB PO SCH (08:29)
[2022-01-02 08:30] VITALS: BP 186/80
[2022-01-02] MEDS: amLODIPine 5 MG TAB PO SCH (08:30)
[2022-01-02] MEDS: **hydrALAZINE** 10 MG TAB PO SCH (08:30)
[2022-01-02] MEDS: ROSUVASTATIN 10 MG TAB (CRESTOR) PO SCH (08:31)
[2022-01-02 10:51] VITALS: BP 158/78
== END 2022-01-02 11:09 | disposition home or self-care (01) ==
LOC: M ED 11:20 → EDBD 11:20 → M ED INP 11:21 → ENRESERV 15:45 → M PCU 17:17
PROVIDERS: ADMIT Student in an Organized Health Care Education/Training Program; ATTEND Student in an Organized Health Care Education/Training Program
DX: I95.1 Orthostatic hypotension (principal); N40.0 Benign prostatic hyperplasia without lower urinary tract symptoms; E11.9 Type 2 diabetes mellitus without complications; Z79.4 Long term (current) use of insulin; N18.4 Chronic kidney disease, stage 4 (severe); D63.1 Anemia in chronic kidney disease; I12.9 Hypertensive chronic kidney disease with stage 1 through stage 4 chronic kidney disease, or unspecified chronic kidney disease; G20 Parkinson's disease; K21.9 Gastro-esophageal reflux disease without esophagitis; K31.84 Gastroparesis; G47.00 Insomnia, unspecified; M10.9 Gout, unspecified; E78.49 Other hyperlipidemia; Z79.82 Long term (current) use of aspirin; Z79.899 Other long term (current) drug therapy; Z91.041 Radiographic dye allergy status; K22.70 Barrett's esophagus without dysplasia
CPT/HCPCS: 36415; 70450; 71045; 80048; 80053; 80076; 81001; 82140; 82570; 82803; 83605; 83930; 84145; 84156; 84443; 84484; 85025; 85652; 86140; 87040; 87631; 93005; 93041; 94760; 96374; 96375; 97116; 97161; 97530; 99285; G0378; J0360; J1815; J2405; J2765

== ENCOUNTER → 2022-02-21 | Outpatient (REF) | payer MEDICARE ==
[~2022-02-21] MED LIST changes: +CARB25TA9 PO; +FLOM0.4C39 PO; +FURO20TA2 PO; +JARD1TAB PO; +LASI20TA3 PO
[2022-02-21 18:15] LABS: COMPLEMENT C3 134 MG/DL (90-180); COMPLEMENT C4 43 MG/DL (10-40)
== END ==
LOC: M LAB REF 16:45
PROVIDERS: ATTEND Internal Medicine Nephrology
DX: R80.9 Proteinuria, unspecified (principal)

== ENCOUNTER → 2022-03-31 | Outpatient (CLI) | payer MEDICARE | LOC: M LABSMTC 10:30 | PROVIDERS: ATTEND Anesthesiology | DX: Z01.812 Encounter for preprocedural laboratory examination (principal); Z20.822 Contact with and (suspected) exposure to COVID-19 ==

== ENCOUNTER 2022-04-02 10:56 | Day surgery (SDC) | payer MEDICARE ==
[~2022-04-02] VITALS: Ht 167.6 cm; Wt 70.3 kg
[~2022-04-02 10:56] MED LIST changes: +BSS IRRIG/VANCO(10MG)/TOBRA(5MG)/EPINEPH(1:1000-0.5CC)500ML BAG-ORONLY IR ONE; +CEFUROXIME 1MG/0.1ML INTRACAMERAL INJ As Ordered ONE; +LIDOCAINE 1% SDV 5ML VIAL As Ordered ONE; +LIDOCAINE 3.5 % 1ML OPHTH TOPICAL GEL OU ONE; +MIDAZOLAM INJ 2MG/2ML VIAL (J2250 PER 1MG) As Ordered ONE; +OFLOXACIN 0.3 % (OCUFLOX) OPTH SOL 5ML OS ONE; +PHENYLEPHRINE HCL 10 % OPHTH. SOL 5ML OS PRN; +fentaNYL 100 MCG/2 ML INJECTION As Ordered ONE
[2022-04-02] MEDS: PHENYLEPHRINE 2.5% OPHTH SOL 2ML OS SCH ×2 (12:47→13:20)
[2022-04-02] MEDS: CYCLOPENTOLATE 1% OPHTH SOLN 2 ML BTL OS SCH ×2 (12:47→13:20)
[2022-04-02] MEDS: TROPICAMIDE 1% OPHTH SOLN 2ML OS SCH ×2 (12:47→13:20)
[2022-04-02] MEDS ORDERED: hydrALAZINE 20MG/ML 1ML VIAL (J0360 PER 20MG) As Ordered ONE (13:56)
[2022-04-02 14:04] VITALS: BP 203/98
== END 2022-04-02 14:31 | disposition home or self-care (01) ==
LOC: M SDC 10:56
PROVIDERS: ATTEND Ophthalmology
DX: H25.12 Age-related nuclear cataract, left eye (principal); I10 Essential (primary) hypertension; E78.5 Hyperlipidemia, unspecified; E11.9 Type 2 diabetes mellitus without complications; Z91.041 Radiographic dye allergy status; K21.9 Gastro-esophageal reflux disease without esophagitis; M10.9 Gout, unspecified; F41.9 Anxiety disorder, unspecified; Z79.4 Long term (current) use of insulin; N40.0 Benign prostatic hyperplasia without lower urinary tract symptoms; G47.33 Obstructive sleep apnea (adult) (pediatric); Z79.02 Long term (current) use of antithrombotics/antiplatelets; Z79.899 Other long term (current) drug therapy
CPT/HCPCS: 66984; J0360; J0697; J2250; J3010; V2632

== ENCOUNTER → 2022-04-15 | Outpatient (REF) | payer MEDICARE ==
[~2022-04-15] MED LIST changes: -BSS IRRIG/VANCO(10MG)/TOBRA(5MG)/EPINEPH(1:1000-0.5CC)500ML BAG-ORONLY IR ONE; -CEFUROXIME 1MG/0.1ML INTRACAMERAL INJ As Ordered ONE; +CLOP75TA99 PO; -LIDOCAINE 1% SDV 5ML VIAL As Ordered ONE; -LIDOCAINE 3.5 % 1ML OPHTH TOPICAL GEL OU ONE; -MIDAZOLAM INJ 2MG/2ML VIAL (J2250 PER 1MG) As Ordered ONE; -OFLOXACIN 0.3 % (OCUFLOX) OPTH SOL 5ML OS ONE; -PHENYLEPHRINE HCL 10 % OPHTH. SOL 5ML OS PRN; -PLAV1TAB2 PO; -fentaNYL 100 MCG/2 ML INJECTION As Ordered ONE
== END ==
LOC: M LAB REF 17:46
PROVIDERS: ATTEND Internal Medicine Nephrology
DX: R80.9 Proteinuria, unspecified (principal)

== ENCOUNTER → 2022-06-03 | Outpatient (CLI) | payer MEDICARE ==
[2022-06-03 10:40] LABS: BASO # 0.1 10^3/uL (0.0-0.2); EOS # 0.2 10^3/uL (0.0-0.5); EOS % 2.5 % (0.0-3.0); HEMATOCRIT 40.1 % (42.0-52.0); HEMOGLOBIN 13.1 g/dl (13.5-17.5); LYMPH % 12.6 % (24.0-44.0); MEAN CORPUSCULAR HEMOGLOBIN 31.1 pg (27.0-33.0); MEAN CORPUSCULAR HGB CONC 32.7 g/dl (32.0-36.5); MEAN CORPUSCULAR VOLUME 95.2 fl (80.0-96.0); MONO # 0.6 10^3/uL (0.0-0.8); MONO % 7.4 % (2.0-8.0); NEUTROPHILS % 76.1 % (36.0-66.0); PLATELET COUNT, AUTOMATED 266 10^3/uL (150-450); RED BLOOD COUNT 4.21 10^6/uL (4.30-6.10); WHITE BLOOD COUNT 7.9 10^3/uL (4.0-10.0)
[2022-06-03 11:08] LABS: ALBUMIN 3.2 G/DL (3.2-5.2); ALKALINE PHOSPHATASE 76 U/L (46-116); ALT/SGPT 19 U/L (7.0-40); AST/SGOT 33 U/L (<34); BILIRUBIN,TOTAL 0.9 MG/DL (0.3-1.2); BLOOD UREA NITROGEN 43 MG/DL (9-23); CALCIUM LEVEL 9.3 MG/DL (8.3-10.6); CARBON DIOXIDE LEVEL 26 MMOL/L (20-31); CHLORIDE LEVEL 101 MMOL/L (98-107); GLOMERULAR FILTRATION RATE 25.7 (>42); GLUCOSE, FASTING 135 MG/DL (74-106); POTASSIUM SERUM 4.2 MMOL/L (3.5-5.1); SODIUM LEVEL 137 MMOL/L (136-145); TOTAL PROTEIN 6.2 G/DL (5.7-8.2); TOTAL PROTEIN 6.2 GM/DL (6.4-8.2)
[2022-06-03 11:09] LABS: FERRITIN 278.3 NG/ML (10.5-307.3); TOTAL 25(OH) VITAMIN D 26.3 NG/ML (20.0-100.0)
[2022-06-03 11:10] LABS: FREE T4 0.81 NG/DL (0.89-1.76); THYROID STIMULATING HORMONE 3.248 uIU/ML (0.55-4.78)
== END ==
LOC: M LAB 09:24
PROVIDERS: ATTEND Psychiatry & Neurology Neurology
DX: R53.83 Other fatigue (principal); G62.9 Polyneuropathy, unspecified

== ENCOUNTER 2022-06-09 15:17 | Inpatient (IN) | payer MEDICARE ==
[2022-06-09] VITALS (48 sets, daily range): BP systolic 129–229; BP diastolic 66–107
[~2022-06-09] VITALS: Ht 167.6 cm; Wt 64.7 kg
[2022-06-09] MEDS ORDERED: NS 500 ML IV ONE (15:25)
[2022-06-09] MEDS ORDERED: MECLIZINE 25 MG TABLET PO ONE (15:40)
[2022-06-09 15:49] LABS: BASO # 0.1 10^3/uL (0.0-0.2); BASO % 0.8 % (0.0-1.0); EOS # 0.1 10^3/uL (0.0-0.5); EOS % 1.1 % (0.0-3.0); HEMATOCRIT 37.4 % (42.0-52.0); HEMOGLOBIN 12.8 g/dl (13.5-17.5); LYMPH # 0.9 10^3/uL (1.5-5.0); LYMPH % 10.4 % (24.0-44.0); MEAN CORPUSCULAR HEMOGLOBIN 31.8 pg (27.0-33.0); MEAN CORPUSCULAR HGB CONC 34.2 g/dl (32.0-36.5); MEAN CORPUSCULAR VOLUME 92.8 fl (80.0-96.0); MONO # 0.6 10^3/uL (0.0-0.8); MONO % 6.6 % (2.0-8.0); NEUTROPHILS # 6.8 10^3/uL (1.5-8.5); NEUTROPHILS % 80.9 % (36.0-66.0); PLATELET COUNT, AUTOMATED 233 10^3/uL (150-450); RED BLOOD COUNT 4.03 10^6/uL (4.30-6.10); WHITE BLOOD COUNT 8.4 10^3/uL (4.0-10.0)
[2022-06-09] MEDS ORDERED: LABETALOL 100MG/20ML VIAL IV PRN (15:55)
[2022-06-09 16:02] LABS: INR 0.92; PROTHROMBIN TIME 12.6 SECONDS (12.5-14.5)
[2022-06-09 16:03] LABS: PARTIAL THROMBOPLASTIN TIME 24.7 SECONDS (24.8-34.2)
[2022-06-09 16:15] LABS: BILIRUBIN,DIRECT 0.3 MG/DL (<0.4)
[2022-06-09 16:16] LABS: ALBUMIN 3.3 G/DL (3.2-5.2); BILIRUBIN,TOTAL 0.9 MG/DL (0.3-1.2); CALCIUM LEVEL 8.9 MG/DL (8.3-10.6); CK-MB VALUE MASS 3.4 NG/ML (<3.6); CREATININE FOR GFR 2.35 MG/DL (0.70-1.30); GLOMERULAR FILTRATION RATE 28.9 (>42); MB/CK RELATIVE INDEX 1.07 (< OR =4); POTASSIUM SERUM 3.8 MMOL/L (3.5-5.1)
[2022-06-09 16:20] LABS: FREE T4 0.98 NG/DL (0.89-1.76); THYROID STIMULATING HORMONE 2.303 uIU/ML (0.55-4.78)
[2022-06-09 16:21] LABS: RSV AMPLIFICATION NEGATIVE (NEGATIVE)
[2022-06-09] MEDS ORDERED: hydrALAZINE 20MG/ML 1ML VIAL IV ONE (16:35)
[2022-06-09 17:50] LABS: MB/CK RELATIVE INDEX 0.96 (< OR =4)
[2022-06-09] MEDS ORDERED: ALPRAZolam 0.25 MG TAB PO ONE (19:05)
[2022-06-09] MEDS ORDERED: NITROGLYCERIN/D5W 100MCG/ML 25 MG in IV 1 EA IV SCH ×3 (19:05→22:15)
[2022-06-09] MEDS: ALBUTEROL SULFATE 2.5MG/0.5ML INH NEB SOLN NEB SCH (20:00)
[2022-06-09 20:05] LABS: CK-MB VALUE MASS 4.1 NG/ML (<3.6)
[2022-06-09 20:06] LABS: MB/CK RELATIVE INDEX 1.37 (< OR =4)
[2022-06-09] MEDS ORDERED: DEXTROSE 50% 50ML SYRINGE IV PRN (20:55)
[2022-06-09] MEDS ORDERED: GLUCAGON INJ 1MG VIAL SC PRN (20:55)
[2022-06-09] MEDS ORDERED: GLUCOSE 4GM CHEW TABLET PO PRN (20:55)
[2022-06-09] MEDS ORDERED: amLODIPine 5 MG TAB PO ONE (20:55)
[2022-06-09] MEDS ORDERED: METOPROLOL TART 25 MG TABLET PO SCH (21:00)
[2022-06-09] MEDS: INSULIN LISPRO (NovoLOG) PER UNIT SC SCH (21:00)
[2022-06-09] MEDS ORDERED: JARD1TAB3 PO (22:13)
[2022-06-09] MEDS ORDERED: XALA0.007 OU (22:13)
[2022-06-09] MEDS ORDERED: ONDA-83 PO (22:13)
[2022-06-09] MEDS ORDERED: SERT25TA85 PO (22:13)
[2022-06-09] MEDS ORDERED: FLOM0.4C39 PO (22:13)
[2022-06-09] MEDS ORDERED: LOSA50TA28 PO (22:13)
[2022-06-09] MEDS ORDERED: HOME MED LIST COMPLETE! XX SCH (22:15)
[2022-06-09] MEDS: ACETAMINOPHEN TAB 650MG DOSE (2X325MG) PO PRN (23:11)
[2022-06-09] MEDS: HEPARIN SOD (PORCINE) 5000UNITS/ML 1ML VIAL/SYRINGE SQ SCH (23:12)
[2022-06-09] MEDS ORDERED: ASPIRIN 81MG CHEW TABLET PO ONE (23:20)
[2022-06-10] VITALS (61 sets, daily range): BP systolic 114–210; BP diastolic 55–94
[2022-06-10 04:40] LABS: BASO # 0.1 10^3/uL (0.0-0.2); BASO % 0.9 % (0.0-1.0); EOS # 0.1 10^3/uL (0.0-0.5); EOS % 1.8 % (0.0-3.0); HEMATOCRIT 33.2 % (42.0-52.0); HEMOGLOBIN 11.1 g/dl (13.5-17.5); LYMPH # 1.5 10^3/uL (1.5-5.0); LYMPH % 19.5 % (24.0-44.0); MEAN CORPUSCULAR HEMOGLOBIN 31.6 pg (27.0-33.0); MEAN CORPUSCULAR HGB CONC 33.4 g/dl (32.0-36.5); MEAN CORPUSCULAR VOLUME 94.6 fl (80.0-96.0); MONO # 0.7 10^3/uL (0.0-0.8); MONO % 9.2 % (2.0-8.0); NEUTROPHILS # 5.3 10^3/uL (1.5-8.5); NEUTROPHILS % 68.3 % (36.0-66.0); PLATELET COUNT, AUTOMATED 230 10^3/uL (150-450); RED BLOOD COUNT 3.51 10^6/uL (4.30-6.10); WHITE BLOOD COUNT 7.7 10^3/uL (4.0-10.0)
[2022-06-10 05:10] LABS: CK-MB VALUE MASS 2.8 NG/ML (<3.6); MAGNESIUM LEVEL 1.9 MG/DL (1.8-2.4)
[2022-06-10 05:12] LABS: MB/CK RELATIVE INDEX 0.96 (< OR =4)
[2022-06-10 05:33] LABS: ALBUMIN 2.7 G/DL (3.2-5.2); BILIRUBIN,TOTAL 0.7 MG/DL (0.3-1.2); CALCIUM LEVEL 8.4 MG/DL (8.3-10.6); CREATININE FOR GFR 2.42 MG/DL (0.70-1.30); POTASSIUM SERUM 4.2 MMOL/L (3.5-5.1); TOTAL PROTEIN 4.9 G/DL (5.7-8.2)
[2022-06-10] MEDS: HEPARIN SOD (PORCINE) 5000UNITS/ML 1ML VIAL/SYRINGE SQ SCH ×3 (06:52→21:51)
[2022-06-10] MEDS: INSULIN LISPRO (NovoLOG) PER UNIT SC SCH ×4 (07:30→21:00)
[2022-06-10] MEDS: ALBUTEROL SULFATE 2.5MG/0.5ML INH NEB SOLN NEB SCH ×2 (08:00→19:42)
[2022-06-10] MEDS ORDERED: hydrALAZINE 20MG/ML 1ML VIAL IV PRN (08:15)
[2022-06-10] MEDS ORDERED: amLODIPine 5 MG TAB PO SCH (09:00)
[2022-06-10] MEDS ORDERED: ASPIRIN 325 MG TAB PO SCH (09:00)
[2022-06-10] MEDS ORDERED: PANTOPRAZOLE 40MG VIAL IV SCH (09:00)
[2022-06-10] MEDS ORDERED: LOSARTAN 25 MG TAB PO SCH ×2 (09:00→21:00)
[2022-06-10] MEDS: ASPIRIN 81MG CHEW TABLET PO SCH (09:44)
[2022-06-10] MEDS: ACETAMINOPHEN TAB 650MG DOSE (2X325MG) PO PRN (09:45)
[2022-06-10] MEDS ORDERED: ONDANSETRON 4MG TAB PO PRN (13:45)
[2022-06-10] MEDS: allopurinoL 300 MG TAB PO SCH (15:57)
[2022-06-10] MEDS: TAMSULOSIN 0.4 MG CAP PO SCH (15:57)
[2022-06-10] MEDS: CLOPIDOGREL 75 MG TAB PO SCH (15:57)
[2022-06-10] MEDS: CALCITRIOL 0.25 MCG CAP (S0169) PO SCH (15:57)
[2022-06-10] MEDS ORDERED: amLODIPine 5 MG TAB PO ONE (16:40)
[2022-06-10] MEDS: PANTOPRAZOLE 40MG TAB (PROTONIX) PO SCH (20:11)
[2022-06-10] MEDS: LATANOPROST 0.005% OPHTH SOLN 2.5 ML OU SCH (20:11)
[2022-06-10] MEDS: SINEMET 25-100 MG TAB PO SCH (20:11)
[2022-06-10] MEDS: SERTRALINE HCL 25 MG TABLET PO SCH (20:13)
[2022-06-10] MEDS ORDERED: LOSARTAN 50MG TABLET PO SCH ×2 (21:00)
[2022-06-11] VITALS (12 sets, daily range): BP systolic 110–211; BP diastolic 58–91
[2022-06-11 04:56] LABS: HEMATOCRIT 36.6 % (42.0-52.0); MEAN CORPUSCULAR HEMOGLOBIN 31.4 pg (27.0-33.0); MEAN CORPUSCULAR HGB CONC 32.8 g/dl (32.0-36.5); MEAN CORPUSCULAR VOLUME 95.8 fl (80.0-96.0); PLATELET COUNT, AUTOMATED 225 10^3/uL (150-450); RED BLOOD COUNT 3.82 10^6/uL (4.30-6.10); WHITE BLOOD COUNT 8.2 10^3/uL (4.0-10.0)
[2022-06-11 05:20] LABS: MAGNESIUM LEVEL 1.9 MG/DL (1.8-2.4)
[2022-06-11 05:22] LABS: CALCIUM LEVEL 8.4 MG/DL (8.3-10.6); CREATININE FOR GFR 2.47 MG/DL (0.70-1.30); GLOMERULAR FILTRATION RATE 27.3 (>42); PHOSPHORUS LEVEL 3.4 MG/DL (2.4-5.1); POTASSIUM SERUM 4.1 MMOL/L (3.5-5.1)
[2022-06-11] MEDS: HEPARIN SOD (PORCINE) 5000UNITS/ML 1ML VIAL/SYRINGE SQ SCH ×3 (05:23→21:08)
[2022-06-11] MEDS: INSULIN LISPRO (NovoLOG) PER UNIT SC SCH ×4 (07:30→20:24)
[2022-06-11] MEDS: ALBUTEROL SULFATE 2.5MG/0.5ML INH NEB SOLN NEB SCH (08:00)
[2022-06-11] MEDS: allopurinoL 300 MG TAB PO SCH (08:25)
[2022-06-11] MEDS: CLOPIDOGREL 75 MG TAB PO SCH (08:26)
[2022-06-11] MEDS: ASPIRIN 81MG CHEW TABLET PO SCH (08:26)
[2022-06-11] MEDS: LOSARTAN 50MG TABLET PO SCH ×2 (08:26→20:29)
[2022-06-11] MEDS: PANTOPRAZOLE 40MG TAB (PROTONIX) PO SCH ×2 (08:27→20:29)
[2022-06-11] MEDS: TAMSULOSIN 0.4 MG CAP PO SCH (08:27)
[2022-06-11] MEDS: SINEMET 25-100 MG TAB PO SCH ×2 (08:27→20:29)
[2022-06-11] MEDS: CALCITRIOL 0.25 MCG CAP (S0169) PO SCH (08:27)
[2022-06-11] MEDS: amLODIPine 5 MG TAB PO SCH ×2 (08:27→20:29)
[2022-06-11] MEDS ORDERED: LOSARTAN 50MG TABLET PO SCH (09:00)
[2022-06-11] MEDS ORDERED: amLODIPine 5 MG TAB PO SCH (09:00)
[2022-06-11] MEDS: LATANOPROST 0.005% OPHTH SOLN 2.5 ML OU SCH (21:09)
[2022-06-11] MEDS: SERTRALINE HCL 25 MG TABLET PO SCH (21:09)
[2022-06-11] MEDS: ACETAMINOPHEN TAB 650MG DOSE (2X325MG) PO PRN (22:59)
[2022-06-12] VITALS (8 sets, daily range): BP systolic 154–186; BP diastolic 70–81
[2022-06-12] MEDS ORDERED: hydrALAZINE 20MG/ML 1ML VIAL IV ONE (01:00)
[2022-06-12 04:35] LABS: HEMATOCRIT 34.9 % (42.0-52.0); HEMOGLOBIN 11.6 g/dl (13.5-17.5); MEAN CORPUSCULAR HEMOGLOBIN 31.7 pg (27.0-33.0); MEAN CORPUSCULAR HGB CONC 33.2 g/dl (32.0-36.5); MEAN CORPUSCULAR VOLUME 95.4 fl (80.0-96.0); PLATELET COUNT, AUTOMATED 219 10^3/uL (150-450); RED BLOOD COUNT 3.66 10^6/uL (4.30-6.10); WHITE BLOOD COUNT 9.3 10^3/uL (4.0-10.0)
[2022-06-12 05:09] LABS: CALCIUM LEVEL 8.5 MG/DL (8.3-10.6); CREATININE FOR GFR 2.37 MG/DL (0.70-1.30); GLOMERULAR FILTRATION RATE 28.6 (>42); POTASSIUM SERUM 3.6 MMOL/L (3.5-5.1)
[2022-06-12] MEDS ORDERED: **hydrALAZINE** 10 MG TAB PO SCH ×2 (06:00→08:00)
[2022-06-12] MEDS: HEPARIN SOD (PORCINE) 5000UNITS/ML 1ML VIAL/SYRINGE SQ SCH ×2 (06:39→14:00)
[2022-06-12] MEDS: INSULIN LISPRO (NovoLOG) PER UNIT SC SCH ×2 (07:30→12:23)
[2022-06-12] MEDS: ASPIRIN 81MG CHEW TABLET PO SCH (08:53)
[2022-06-12] MEDS: TAMSULOSIN 0.4 MG CAP PO SCH (08:53)
[2022-06-12] MEDS: PANTOPRAZOLE 40MG TAB (PROTONIX) PO SCH (08:54)
[2022-06-12] MEDS: CLOPIDOGREL 75 MG TAB PO SCH (08:54)
[2022-06-12] MEDS: LOSARTAN 50MG TABLET PO SCH (08:54)
[2022-06-12] MEDS: allopurinoL 300 MG TAB PO SCH (08:54)
[2022-06-12] MEDS: CALCITRIOL 0.25 MCG CAP (S0169) PO SCH (08:54)
[2022-06-12] MEDS: amLODIPine 5 MG TAB PO SCH (08:55)
[2022-06-12] MEDS: SINEMET 25-100 MG TAB PO SCH (08:55)
[2022-06-12] MEDS ORDERED: AMLO1TAB24 PO (10:54)
[2022-06-12] MEDS ORDERED: COZA50TA PO (10:54)
== END 2022-06-12 16:57 | disposition home or self-care (01) | DRG 281 ==
LOC: EDBD 15:17 → M ED 15:17 → M ED INP 19:00 → M ICU 20:35
PROVIDERS: ADMIT Internal Medicine Critical Care Medicine; ATTEND Family Medicine
DX: I16.1 Hypertensive emergency (principal); I21.A1 Myocardial infarction type 2; N18.4 Chronic kidney disease, stage 4 (severe); G90.3 Multi-system degeneration of the autonomic nervous system; M10.9 Gout, unspecified; K21.9 Gastro-esophageal reflux disease without esophagitis; E78.5 Hyperlipidemia, unspecified; N28.1 Cyst of kidney, acquired; I12.9 Hypertensive chronic kidney disease with stage 1 through stage 4 chronic kidney disease, or unspecified chronic kidney disease; G47.33 Obstructive sleep apnea (adult) (pediatric); D64.9 Anemia, unspecified; G20 Parkinson's disease; E11.22 Type 2 diabetes mellitus with diabetic chronic kidney disease; E11.42 Type 2 diabetes mellitus with diabetic polyneuropathy; E11.51 Type 2 diabetes mellitus with diabetic peripheral angiopathy without gangrene; F32.A Depression, unspecified; Z79.02 Long term (current) use of antithrombotics/antiplatelets; E55.9 Vitamin D deficiency, unspecified; Z79.899 Other long term (current) drug therapy; Z87.891 Personal history of nicotine dependence; E66.9 Obesity, unspecified; N40.0 Benign prostatic hyperplasia without lower urinary tract symptoms

== ENCOUNTER 2022-07-03 10:45 | Outpatient (RCR) | payer MEDICARE ==
[~2022-07-03 10:45] MED LIST changes: +COZA50TA PO; +LOSA50TA28 PO; +ONDA-83 PO; +SERT25TA85 PO; +XALA0.007 OU
== END 2022-07-15 ==
LOC: M PT 10:45
PROVIDERS: ATTEND Internal Medicine Critical Care Medicine
DX: G20 Parkinson's disease (principal)

== ENCOUNTER → 2022-08-12 | Outpatient (RCR) | payer MEDICARE | LOC: M PT 07-24 09:47 | PROVIDERS: ATTEND Internal Medicine Critical Care Medicine | DX: G20 Parkinson's disease (principal) ==

== ENCOUNTER 2022-08-19 10:00 | Outpatient (RCR) | payer MEDICARE ==
[2022-09-02] MEDS ORDERED: HYDR100T PO (12:47)
== END 2022-09-12 ==
LOC: M PT 10:00
PROVIDERS: ATTEND Internal Medicine Critical Care Medicine
DX: G20 Parkinson's disease (principal)

== ENCOUNTER → 2022-08-27 | Outpatient (CLI) | payer MEDICARE | LOC: M WHC 14:50 | PROVIDERS: ATTEND Internal Medicine | DX: N63.42 Unspecified lump in left breast, subareolar (principal) | CPT/HCPCS: 76642; 77066; G0279 ==

== ENCOUNTER → 2022-09-02 | Outpatient (CLI) | payer MEDICARE ==
[~2022-09-02] MED LIST changes: +**SFHN** LIDOCAINE 1% MDV 20ML VIAL ONE; +**SFHN** SODIUM BICARBONATE 8.4% 10MEQ 10ML VIAL ONE; +HYDR100T PO
[2022-09-02 16:23] VITALS: BP 170/72
== END ==
LOC: M WHCPRO 12:32
PROVIDERS: ATTEND Internal Medicine
DX: C50.822 Malignant neoplasm of overlapping sites of left male breast (principal); C77.3 Secondary and unspecified malignant neoplasm of axilla and upper limb lymph nodes; R92.8 Other abnormal and inconclusive findings on diagnostic imaging of breast; N63.42 Unspecified lump in left breast, subareolar
CPT/HCPCS: 19083; 77065; 88305; G0279

== ENCOUNTER → 2022-09-17 | Outpatient (CLI) | payer MEDICARE ==
[~2022-09-17] MED LIST changes: -**SFHN** LIDOCAINE 1% MDV 20ML VIAL ONE; -**SFHN** SODIUM BICARBONATE 8.4% 10MEQ 10ML VIAL ONE; +ATOR1TAB21 PO; +NOVOINJ SC; +TRES100I SC
[2022-09-17 08:55] VITALS: BP 140/82
== END ==
LOC: M WHCPRO 07:51
PROVIDERS: ATTEND Surgery
DX: C50 Malignant neoplasm of breast (principal); C77.3 Secondary and unspecified malignant neoplasm of axilla and upper limb lymph nodes
CPT/HCPCS: 10035; 38505; 88305; A4648

== ENCOUNTER → 2022-09-18 | Outpatient (CLI) | payer MEDICARE ==
[~2022-09-18] VITALS: Ht 170.2 cm; Wt 70.9 kg
[2022-09-18 14:23] VITALS: BP 156/75
== END ==
LOC: M ONCR 13:28
PROVIDERS: ATTEND General Practice
DX: C50.122 Malignant neoplasm of central portion of left male breast (principal); L29.8 Other pruritus; N18.4 Chronic kidney disease, stage 4 (severe); E11.22 Type 2 diabetes mellitus with diabetic chronic kidney disease; I12.9 Hypertensive chronic kidney disease with stage 1 through stage 4 chronic kidney disease, or unspecified chronic kidney disease; E11.51 Type 2 diabetes mellitus with diabetic peripheral angiopathy without gangrene; K21.9 Gastro-esophageal reflux disease without esophagitis; E78.5 Hyperlipidemia, unspecified; G47.33 Obstructive sleep apnea (adult) (pediatric); K22.70 Barrett's esophagus without dysplasia; I44.30 Unspecified atrioventricular block; N62 Hypertrophy of breast; Z79.02 Long term (current) use of antithrombotics/antiplatelets; Z79.4 Long term (current) use of insulin; Z79.899 Other long term (current) drug therapy; Z80.3 Family history of malignant neoplasm of breast; Z80.7 Family history of other malignant neoplasms of lymphoid, hematopoietic and related tissues; Z85.820 Personal history of malignant melanoma of skin; Z87.891 Personal history of nicotine dependence; Z91.041 Radiographic dye allergy status; Z95.5 Presence of coronary angioplasty implant and graft

== ENCOUNTER → 2022-09-22 | Outpatient (CLI) | payer MEDICARE | LOC: M PLALAB 15:13 | PROVIDERS: ATTEND Surgery | DX: C50.922 Malignant neoplasm of unspecified site of left male breast (principal); Z80.3 Family history of malignant neoplasm of breast ==

== ENCOUNTER → 2022-10-24 | Outpatient (CLI) | payer MEDICARE ==
[~2022-10-24] MED LIST changes: +ANAS1TAB2 PO; -COZA50TA PO; +FURO20TA2; +LOSA-528 PO; -LOSA100T45 PO; +LOSA100T46 PO; +PROC10TA5 PO; +TAMS1CAP17; +[UNRECOGNIZED DRUG - CODE] PO
== END ==
LOC: M WHC 09:36
PROVIDERS: ATTEND Internal Medicine Medical Oncology
DX: Z13.820 Encounter for screening for osteoporosis (principal); M85.851 Other specified disorders of bone density and structure, right thigh

== ENCOUNTER 2022-11-30 18:12 | Observation (INO) | payer MEDICARE ==
[~2022-11-30] VITALS: Ht 167.6 cm; Wt 72.7 kg
[~2022-11-30 18:12] MED LIST changes: -FURO20TA2; -TAMS1CAP17; +TAMS1CAP17 PO
[2022-11-30 19:01] LABS: BASO % 0.3 % (0.0-1.0); EOS # 0.1 10^3/uL (0.0-0.5); EOS % 0.7 % (0.0-3.0); HEMATOCRIT 29.3 % (42.0-52.0); HEMOGLOBIN 10.1 g/dl (13.5-17.5); LYMPH # 1.4 10^3/uL (1.5-5.0); LYMPH % 14.1 % (24.0-44.0); MEAN CORPUSCULAR HEMOGLOBIN 32.6 pg (27.0-33.0); MEAN CORPUSCULAR HGB CONC 34.5 g/dl (32.0-36.5); MEAN CORPUSCULAR VOLUME 94.5 fl (80.0-96.0); MONO # 0.7 10^3/uL (0.0-0.8); MONO % 6.6 % (2.0-8.0); NEUTROPHILS # 7.7 10^3/uL (1.5-8.5); NEUTROPHILS % 77.4 % (36.0-66.0); PLATELET COUNT, AUTOMATED 337 10^3/uL (150-450)
[2022-11-30 19:11] LABS: CK-MB VALUE MASS 3.2 NG/ML (<3.6); ETHYL ALCOHOL (ETHANOL) < 0.003 % (0.000-0.010)
[2022-11-30 19:12] LABS: SALICYLATE LEVEL < 3.0 MG/DL (<30)
[2022-11-30 19:13] LABS: ACETAMINOPHEN LEVEL < 2.0 UG/ML (10.0-20.0); ALBUMIN 3.5 G/DL (3.2-5.2); ALKALINE PHOSPHATASE 90 U/L (46-116); ALT/SGPT 32 U/L (7.0-40); AST/SGOT 33 U/L (<34); BILIRUBIN,DIRECT 0.2 MG/DL (<0.4); BILIRUBIN,TOTAL 0.6 MG/DL (0.3-1.2); BLOOD UREA NITROGEN 62 MG/DL (9-23); CALCIUM LEVEL 9.2 MG/DL (8.3-10.6); CARBON DIOXIDE LEVEL 21 MMOL/L (20-31); CHLORIDE LEVEL 99 MMOL/L (98-107); CREATININE FOR GFR 2.86 MG/DL (0.70-1.30); GLOMERULAR FILTRATION RATE 23.1 (>42); GLUCOSE, FASTING 148 MG/DL (74-106); POTASSIUM SERUM 3.7 MMOL/L (3.5-5.1); SODIUM LEVEL 136 MMOL/L (136-145); TOTAL PROTEIN 6.5 G/DL (5.7-8.2)
[2022-11-30 19:14] LABS: THYROID STIMULATING HORMONE 4.422 uIU/ML (0.55-4.78)
[2022-11-30 19:19] LABS: CPK CREATINE PHOSPHOKINASE 332 U/L (46-171); MB/CK RELATIVE INDEX 0.96 (< OR =4)
[2022-11-30 19:46] LABS: OSMOLALITY SERUM 300 MOSM/KG (280-301)
[2022-11-30] MEDS ORDERED: hydrALAZINE 20MG/ML 1ML VIAL IV STA (19:51)
[2022-11-30 20:03] LABS: AMPHETAMINES LEVEL URINE NEGATIVE (NEGATIVE); BARBITURATES URINE NEGATIVE (NEGATIVE); BENZODIAZEPINES URINE NEGATIVE (NEGATIVE); COCAINE METABOLITE URINE NEGATIVE (NEGATIVE); METHADONE URINE NEGATIVE (NEGATIVE); OPIATES URINE NEGATIVE (NEGATIVE)
[2022-11-30 20:04] LABS: CANNABINOIDS URINE NEGATIVE (NEGATIVE); PHENCYCLIDINE URINE NEGATIVE (NEGATIVE)
[2022-11-30] MEDS: **hydrALAZINE** 50 MG TAB PO SCH (21:00)
[2022-11-30] MEDS ORDERED: TAMSULOSIN 0.4 MG CAP PO SCH (21:00)
[2022-11-30 21:39] LABS: CK-MB VALUE MASS 1.9 NG/ML (<3.6)
[2022-11-30 21:42] LABS: MB/CK RELATIVE INDEX 0.67 (< OR =4)
[2022-11-30 22:53] LABS: RSV AMPLIFICATION NEGATIVE (NEGATIVE)
[2022-12-01] MEDS ORDERED: AMLO1TAB24 PO (00:03)
[2022-12-01] MEDS ORDERED: ISOS1TAB35 PO (00:15)
[2022-12-01] MEDS ORDERED: FERR325T3 PO (00:15)
[2022-12-01] MEDS ORDERED: TRES1INJ SC (00:15)
[2022-12-01] MEDS ORDERED: HOME MED LIST COMPLETE! XX SCH (00:15)
[2022-12-01] MEDS ORDERED: ATOR1TAB21 PO (00:15)
[2022-12-01] MEDS ORDERED: LUPR22.5 IM (00:15)
[2022-12-01] MEDS ORDERED: GLUCAGON INJ 1MG VIAL SC PRN (00:55)
[2022-12-01] MEDS ORDERED: GLUCOSE 4GM CHEW TABLET PO PRN (00:55)
[2022-12-01] MEDS ORDERED: DEXTROSE 50% 50ML SYRINGE IV PRN (00:55)
[2022-12-01] MEDS ORDERED: ONDANSETRON 4MG TAB PO PRN (00:55)
[2022-12-01] MEDS: amLODIPine 5 MG TAB PO SCH ×2 (01:39→09:55)
[2022-12-01 08:00] VITALS: BP 162/76; TEMP 97.9; O2SAT 98
[2022-12-01] MEDS ORDERED: CALCITRIOL 0.25 MCG CAP (S0169) PO SCH (09:00)
[2022-12-01] MEDS ORDERED: ISOSORBIDE MON. (IMDUR) 30MG XR TAB PO SCH (09:00)
[2022-12-01] MEDS ORDERED: allopurinoL 300 MG TAB PO SCH (09:00)
[2022-12-01] MEDS ORDERED: PANTOPRAZOLE 40MG TAB (PROTONIX) PO SCH (09:00)
[2022-12-01] MEDS ORDERED: FUROSEMIDE 40 MG TAB PO SCH (09:00)
[2022-12-01] MEDS ORDERED: ENOXAPARIN 30MG/0.3ML SYRINGE (J1650 PER 10MG) SC SCH (09:00)
[2022-12-01] MEDS ORDERED: CLOPIDOGREL 75 MG TAB PO SCH (09:00)
[2022-12-01] MEDS ORDERED: LEVEMIR (INSULIN DETEMIR) 1 UNITS/0.01ML SC SCH (09:00)
[2022-12-01] MEDS ORDERED: ANASTRAZOLE 1MG TABLET (PATIENT'S OWN MED) PO SCH (09:00)
[2022-12-01] MEDS: INSULIN LISPRO (NovoLOG) PER UNIT SC SCH ×3 (09:53→17:59)
[2022-12-01] MEDS: **hydrALAZINE** 50 MG TAB PO SCH ×2 (09:56→16:11)
[2022-12-01] MEDS: SINEMET 25-100 MG TAB PO SCH ×2 (10:05→16:10)
[2022-12-01] MEDS ORDERED: FERROUS SULFATE 325MG TAB PO SCH (13:00)
[2022-12-01 13:30] VITALS: BP 142/64; TEMP 97.6; O2SAT 96
[2022-12-01 16:00] VITALS: BP 150/64; TEMP 97.5; O2SAT 96
[2022-12-01 16:11] VITALS: BP 150/64
[2022-12-01] MEDS ORDERED: ATORVASTATIN 20 MG TAB PO SCH (21:00)
[2022-12-01] MEDS ORDERED: INSULIN LISPRO (NovoLOG) PER UNIT SC SCH (21:00)
[2022-12-01] MEDS ORDERED: LATANOPROST 0.005% OPHTH SOLN 2.5 ML OU SCH (21:00)
[2022-12-01] MEDS ORDERED: zolPIDEM TARTRATE 5 MG TAB PO SCH (21:00)
[2022-12-02] MEDS ORDERED: UNRESOLVED PATIENT OWN MED ORDER XX SCH (00:01)
[2022-12-02] MEDS ORDERED: UNRESOLVED CLARIFICATION ENTRY XX SCH (00:01)
== END 2022-12-01 18:55 | disposition home or self-care (01) ==
LOC: EDBD 18:12 → M ED 18:12 → EDSEX 18:12 → M ED INP 18:13 → ENRESERV 12-01 07:56 → M ICU 12-01 09:15
PROVIDERS: ADMIT Internal Medicine; ATTEND Internal Medicine
DX: G45.9 Transient cerebral ischemic attack, unspecified (principal); C50.922 Malignant neoplasm of unspecified site of left male breast; G20 Parkinson's disease; I95.1 Orthostatic hypotension; N18.4 Chronic kidney disease, stage 4 (severe); E11.9 Type 2 diabetes mellitus without complications; G47.33 Obstructive sleep apnea (adult) (pediatric); K31.84 Gastroparesis; E78.5 Hyperlipidemia, unspecified; R42 Dizziness and giddiness; K22.70 Barrett's esophagus without dysplasia; N40.0 Benign prostatic hyperplasia without lower urinary tract symptoms; M10.9 Gout, unspecified; I73.9 Peripheral vascular disease, unspecified; F32.A Depression, unspecified; E55.9 Vitamin D deficiency, unspecified; Z87.891 Personal history of nicotine dependence; Z91.041 Radiographic dye allergy status; Z79.899 Other long term (current) drug therapy; Z79.4 Long term (current) use of insulin
CPT/HCPCS: 70450; 70544; 70551; 71045; 80047; 80048; 80076; 80143; 80307; 81001; 82077; 82140; 82550; 82553; 83605; 83930; 84443; 84484; 85025; 87631; 93005; 93041; 93880; 94760; 96372; 97116; 97161; 99285; G0378; J1650; J1815

== ENCOUNTER → 2023-01-14 | Outpatient (CLI) | payer MEDICARE ==
[~2023-01-14] MED LIST changes: +ISOS1TAB35 PO; +LUPR22.5 IM; +TRES1INJ SC
== END ==
LOC: M WHC 07:03
PROVIDERS: ATTEND Internal Medicine Medical Oncology
DX: C50.922 Malignant neoplasm of unspecified site of left male breast (principal)

== ENCOUNTER → 2023-01-22 | Outpatient (CLI) | payer MEDICARE | LOC: M RAD 14:35 | PROVIDERS: ATTEND Nurse Practitioner | DX: C50.922 Malignant neoplasm of unspecified site of left male breast (principal) ==

== ENCOUNTER → 2023-02-19 | Outpatient (REF) | payer MEDICARE ==
[2023-02-23 09:07] LABS: URIC ACID 3.7 MG/DL (3.7-9.2)
[2023-02-24 07:01] LABS: PTH INTACT 76.2 PG/ML (18.5-88.0)
== END ==
LOC: M LAB REF 08:45
PROVIDERS: ATTEND Internal Medicine Nephrology
DX: N25.81 Secondary hyperparathyroidism of renal origin (principal); D63.1 Anemia in chronic kidney disease; M1A.30X0 Chronic gout due to renal impairment, unspecified site, without tophus (tophi)

== ENCOUNTER → 2023-03-23 | Outpatient (CLI) | payer MEDICARE | LOC: M PLARAD 12:35 | PROVIDERS: ATTEND Internal Medicine Medical Oncology | DX: C50.322 Malignant neoplasm of lower-inner quadrant of left male breast (principal); Z17.0 Estrogen receptor positive status [ER+] | CPT/HCPCS: 78815; A9552 ==

== ENCOUNTER → 2023-03-25 | Outpatient (REF) | payer MEDICARE ==
[2023-03-25 17:16] LABS: PERCENT SATURATION 27.2 % (19.7-50.0)
[2023-03-25 17:19] LABS: FERRITIN 375.8 NG/ML (10.5-307.3)
== END ==
LOC: M LAB REF 16:16
PROVIDERS: ATTEND Internal Medicine
DX: N18.9 Chronic kidney disease, unspecified (principal); D63.1 Anemia in chronic kidney disease

== ENCOUNTER → 2023-03-31 | Outpatient (CLI) | payer MEDICARE | LOC: M PLAIMG 14:28 | PROVIDERS: ATTEND Internal Medicine Medical Oncology | DX: C50.922 Malignant neoplasm of unspecified site of left male breast (principal); Z17.0 Estrogen receptor positive status [ER+]; C50.122 Malignant neoplasm of central portion of left male breast; Z53.9 Procedure and treatment not carried out, unspecified reason ==

== ENCOUNTER → 2023-05-22 | Outpatient (REF) | payer MEDICARE ==
[2023-05-22 18:21] LABS: PERCENT SATURATION 24.1 % (19.7-50.0)
== END ==
LOC: M LAB REF 17:15
PROVIDERS: ATTEND Internal Medicine Nephrology
DX: D50.9 Iron deficiency anemia, unspecified (principal)

== ENCOUNTER → 2023-06-22 | Outpatient (CLI) | payer MEDICARE | LOC: M WUC 12:03 | PROVIDERS: ATTEND Nurse Practitioner Family | DX: M54.2 Cervicalgia (principal); M47.812 Spondylosis without myelopathy or radiculopathy, cervical region ==

== ENCOUNTER 2023-07-20 07:19 | Emergency (ER) | payer MEDICARE ==
[~2023-07-20] VITALS: Ht 167.6 cm; Wt 67.7 kg
[~2023-07-20 07:19] MED LIST changes: +HYDR-161 PO; -HYDR-3911 PO; -HYDR10TAB PO; +HYDR50TA46 PO
[2023-07-20 08:34] LABS: HEMATOCRIT 25.8 % (42.0-52.0); HEMOGLOBIN 8.7 g/dl (13.5-17.5); MEAN CORPUSCULAR HEMOGLOBIN 32.5 pg (27.0-33.0); MEAN CORPUSCULAR HGB CONC 33.7 g/dl (32.0-36.5); MEAN CORPUSCULAR VOLUME 96.3 fl (80.0-96.0); PLATELET COUNT, AUTOMATED 357 10^3/uL (150-450); RED BLOOD COUNT 2.68 10^6/uL (4.30-6.10); WHITE BLOOD COUNT 9.1 10^3/uL (4.0-10.0)
[2023-07-20 09:38] VITALS: TEMP 97.1; O2SAT 99
[2023-07-20 09:50] VITALS: BP 148/80
== END 2023-07-20 09:58 | disposition home or self-care (01) ==
LOC: M ED 07:19
DX: D62 Acute posthemorrhagic anemia (principal); G47.33 Obstructive sleep apnea (adult) (pediatric); N18.30 Chronic kidney disease, stage 3 unspecified; K21.9 Gastro-esophageal reflux disease without esophagitis; Z91.041 Radiographic dye allergy status; Z79.01 Long term (current) use of anticoagulants; Z79.02 Long term (current) use of antithrombotics/antiplatelets; Z79.83 Long term (current) use of bisphosphonates; Z79.4 Long term (current) use of insulin; Z79.899 Other long term (current) drug therapy

== ENCOUNTER → 2023-08-24 | Outpatient (CLI) | payer MEDICARE | LOC: M PLARAD 11:23 | PROVIDERS: ATTEND Internal Medicine Medical Oncology | DX: C50.822 Malignant neoplasm of overlapping sites of left male breast (principal); Z17.0 Estrogen receptor positive status [ER+] | CPT/HCPCS: 78815; A9552 ==

== ENCOUNTER → 2023-09-02 | Outpatient (CLI) | payer MEDICARE | LOC: M ONCR 11:28 | PROVIDERS: ATTEND General Practice | DX: C50.422 Malignant neoplasm of upper-outer quadrant of left male breast (principal); Z71.2 Person consulting for explanation of examination or test findings; Z79.02 Long term (current) use of antithrombotics/antiplatelets; Z79.4 Long term (current) use of insulin; Z79.810 Long term (current) use of selective estrogen receptor modulators (SERMs); Z86.718 Personal history of other venous thrombosis and embolism; Z87.891 Personal history of nicotine dependence; Z90.12 Acquired absence of left breast and nipple; Z91.041 Radiographic dye allergy status ==

== ENCOUNTER 2023-09-09 10:30 | Inpatient (IN) | payer MEDICARE ==
[~2023-09-09] VITALS: Ht 167.6 cm; Wt 62.7 kg
[~2023-09-09 10:30] MED LIST changes: +allopurinoL 100 MG TAB PO SCH
[2023-09-09 11:50] LABS: BASO # 0.1 10^3/uL (0.0-0.2); BASO % 0.7 % (0.0-1.0); EOS # 0.2 10^3/uL (0.0-0.5); EOS % 1.6 % (0.0-3.0); HEMATOCRIT 31.8 % (42.0-52.0); HEMOGLOBIN 10.2 g/dl (13.5-17.5); LYMPH # 0.7 10^3/uL (1.5-5.0); LYMPH % 5.1 % (24.0-44.0); MEAN CORPUSCULAR HEMOGLOBIN 31.2 pg (27.0-33.0); MEAN CORPUSCULAR HGB CONC 32.1 g/dl (32.0-36.5); MEAN CORPUSCULAR VOLUME 97.2 fl (80.0-96.0); MONO # 0.9 10^3/uL (0.0-0.8); MONO % 6.2 % (2.0-8.0); NEUTROPHILS # 12.1 10^3/uL (1.5-8.5); NEUTROPHILS % 85.9 % (36.0-66.0); PLATELET COUNT, AUTOMATED 425 10^3/uL (150-450); RED BLOOD COUNT 3.27 10^6/uL (4.30-6.10); WHITE BLOOD COUNT 14.1 10^3/uL (4.0-10.0)
[2023-09-09 12:09] LABS: ALBUMIN 2.4 G/DL (3.2-5.2); BILIRUBIN,DIRECT 0.4 MG/DL (<0.4); CALCIUM LEVEL 8.2 MG/DL (8.3-10.6); CREATININE FOR GFR 2.25 MG/DL (0.70-1.30); GLOMERULAR FILTRATION RATE 30.3 (>42); POTASSIUM SERUM 3.7 MMOL/L (3.5-5.1); TOTAL PROTEIN 5.8 G/DL (5.7-8.2)
[2023-09-09] MEDS: FUROSEMIDE 100MG/10ML VIAL IV ONE ×2 (15:53→21:48)
[2023-09-09] MEDS: amLODIPine 5 MG TAB PO ONE (16:44)
[2023-09-09] MEDS ORDERED: DEXTROSE 50% 50ML SYRINGE IV PRN (17:00)
[2023-09-09] MEDS ORDERED: GLUCOSE 4GM CHEW TABLET PO PRN (17:00)
[2023-09-09] MEDS ORDERED: GLUCAGON INJ 1MG VIAL SC PRN (17:00)
[2023-09-09 17:15] VITALS: BP 127/79; TEMP 98.1; O2SAT 95
[2023-09-09 17:16] LABS: C REACTIVE PROTEIN QUANTITATIV 4.1 MG/DL (<1.0)
[2023-09-09 17:29] LABS: PROCALCITONIN 0.25 ng/ml
[2023-09-09 17:38] LABS: ERYTHROCYTE SEDIMENTATION RATE 54 mm/hr (0-20)
[2023-09-09] MEDS ORDERED: ALLO100T PO (17:48)
[2023-09-09] MEDS ORDERED: ASPI81CH33 PO (18:01)
[2023-09-09] MEDS ORDERED: CHOL12508 PO (18:01)
[2023-09-09] MEDS ORDERED: AMOX875T2 PO (18:01)
[2023-09-09] MEDS ORDERED: BENZ200C70 PO (18:01)
[2023-09-09] MEDS ORDERED: AMLO1TAB25 PO (18:01)
[2023-09-09] MEDS ORDERED: INSU100I24 SC (18:01)
[2023-09-09] MEDS ORDERED: SENN-186 PO (18:01)
[2023-09-09] MEDS ORDERED: METO1TAB32 PO (18:01)
[2023-09-09] MEDS ORDERED: TAMO20TA8 PO (18:01)
[2023-09-09] MEDS ORDERED: ALBU8.5H INH (18:01)
[2023-09-09] MEDS ORDERED: SEVE0.8P PO (18:01)
[2023-09-09] MEDS ORDERED: HYDR25TA87 PO (18:01)
[2023-09-09] MEDS ORDERED: INSU100I24 SQ (18:07)
[2023-09-09] MEDS ORDERED: HOME MED LIST COMPLETE! XX SCH (18:10)
[2023-09-09] MEDS ORDERED: ONDANSETRON 4MG TAB PO PRN (18:10)
[2023-09-09] MEDS: INSULIN LISPRO (NovoLOG) PER UNIT SC SCH ×2 (18:54→21:00)
[2023-09-09 20:00] VITALS: TEMP 98.1; O2SAT 92
[2023-09-09] MEDS: ALBUTEROL 90 MCG/ACT 8GM HFA INHALER INH SCH (20:16)
[2023-09-09 20:30] VITALS: BP 118/60
[2023-09-09] MEDS ORDERED: **hydrALAZINE HCL** 25 MG TAB PO SCH (21:00)
[2023-09-09] MEDS ORDERED: METOPROLOL SUCC *XL* 25MG TAB (TopROL *XL*) PO SCH (21:00)
[2023-09-09] MEDS: ATORVASTATIN 20 MG TAB PO SCH (21:44)
[2023-09-09] MEDS: TAMOXIFEN CITRATE 10 MG TAB PO SCH (21:44)
[2023-09-09] MEDS: AUGMENTIN 500MG TAB PO SCH (21:45)
[2023-09-09] MEDS: MIDODRINE 5 MG TAB PO ONE (21:45)
[2023-09-09] MEDS: TAMSULOSIN 0.4 MG CAP PO SCH (21:46)
[2023-09-09] MEDS: SENNA 8.6 MG TAB (SENOKOT) PO SCH (21:46)
[2023-09-09] MEDS: BENZONATATE 100MG CAPSULE PO SCH (21:46)
[2023-09-09] MEDS: ENOXAPARIN 80MG/0.8ML SYRINGE (J1650 PER 10MG) SC ONE (21:48)
[2023-09-10 06:30] VITALS: BP 167/77; TEMP 98.2; O2SAT 94
[2023-09-10] MEDS ORDERED: SODIUM CHLORIDE 0.9% 1000ML IV PRN (06:40)
[2023-09-10] MEDS ORDERED: HEPARIN 1,000UNITS/ML 10ML VIAL (FOR RADIOLOGY & DIALYSIS ONLY) XX SCH (06:40)
[2023-09-10] MEDS ORDERED: HEPARIN 1,000UNITS/ML 10ML VIAL (FOR RADIOLOGY & DIALYSIS ONLY) IV PRN (06:40)
[2023-09-10 06:53] LABS: HEMATOCRIT 30.6 % (42.0-52.0); HEMOGLOBIN 9.5 g/dl (13.5-17.5); MEAN CORPUSCULAR HEMOGLOBIN 30.4 pg (27.0-33.0); MEAN CORPUSCULAR VOLUME 97.8 fl (80.0-96.0); PLATELET COUNT, AUTOMATED 379 10^3/uL (150-450); RED BLOOD COUNT 3.13 10^6/uL (4.30-6.10); WHITE BLOOD COUNT 12.1 10^3/uL (4.0-10.0)
[2023-09-10 07:17] LABS: CALCIUM LEVEL 8.6 MG/DL (8.3-10.6); CREATININE FOR GFR 2.7 MG/DL (0.70-1.30); GLOMERULAR FILTRATION RATE 24.6 (>42); POTASSIUM SERUM 3.3 MMOL/L (3.5-5.1)
[2023-09-10] MEDS: INSULIN LISPRO (NovoLOG) PER UNIT SC SCH (08:38)
[2023-09-10] MEDS: ASPIRIN 81MG CHEW TABLET PO SCH (08:39)
[2023-09-10] MEDS: ISOSORBIDE MON. (IMDUR) 30MG XR TAB PO SCH (08:39)
[2023-09-10] MEDS: POTASSIUM CHLORIDE 10MEQ SR TABLET PO ONE (08:39)
[2023-09-10] MEDS: PANTOPRAZOLE 40MG TAB (PROTONIX) PO SCH (08:40)
[2023-09-10] MEDS ORDERED: HEPARIN SOD (PORCINE) 5000UNITS/ML 1ML VIAL/SYRINGE IV PRN (13:05)
[2023-09-10 13:41] LABS: HEMOGLOBIN 10.1 g/dl (13.5-17.5); MEAN CORPUSCULAR HEMOGLOBIN 31.6 pg (27.0-33.0); MEAN CORPUSCULAR HGB CONC 32.6 g/dl (32.0-36.5); MEAN CORPUSCULAR VOLUME 96.9 fl (80.0-96.0); PLATELET COUNT, AUTOMATED 361 10^3/uL (150-450); WHITE BLOOD COUNT 13.9 10^3/uL (4.0-10.0)
[2023-09-10 14:00] VITALS: BP 125/81; TEMP 97.7; O2SAT 97
[2023-09-10] MEDS: HEPARIN DRIP 25,000 UNITS in IV 1 EA IV SCH (15:15)
[2023-09-10 20:22] VITALS: BP 144/64; TEMP 97.2; O2SAT 90
[2023-09-11] MEDS: DEXTROMETHORPHAN 60MG/10ML SUSP 90ML BTL(DELSYM) PO PRN (04:20)
[2023-09-11 05:42] VITALS: BP 146/66; TEMP 98.4; O2SAT 92
[2023-09-11] MEDS ORDERED: HEPARIN 1,000UNITS/ML 10ML VIAL (FOR RADIOLOGY & DIALYSIS ONLY) XX SCH (06:20)
[2023-09-11] MEDS ORDERED: SODIUM CHLORIDE 0.9% 1000ML IV PRN (06:20)
[2023-09-11] MEDS ORDERED: HEPARIN 1,000UNITS/ML 10ML VIAL (FOR RADIOLOGY & DIALYSIS ONLY) IV PRN (06:20)
[2023-09-11 06:33] LABS: HEMOGLOBIN 9.9 g/dl (13.5-17.5); MEAN CORPUSCULAR HEMOGLOBIN 30.9 pg (27.0-33.0); MEAN CORPUSCULAR HGB CONC 31.9 g/dl (32.0-36.5); MEAN CORPUSCULAR VOLUME 96.9 fl (80.0-96.0); PLATELET COUNT, AUTOMATED 356 10^3/uL (150-450); WHITE BLOOD COUNT 11.4 10^3/uL (4.0-10.0)
[2023-09-11 06:54] LABS: CALCIUM LEVEL 8.5 MG/DL (8.3-10.6); CREATININE FOR GFR 2.29 MG/DL (0.70-1.30); GLOMERULAR FILTRATION RATE 29.7 (>42); POTASSIUM SERUM 3.7 MMOL/L (3.5-5.1)
[2023-09-11 07:50] VITALS: BP 146/66
[2023-09-11 08:13] VITALS: BP 160/58
[2023-09-11] MEDS ORDERED: AMLO1TAB24 PO (11:19)
== END 2023-09-11 14:30 | disposition home or self-care (01) | DRG 291 ==
LOC: M ED 14:32 → M ED INP 15:37 → M MS5PR 17:50
PROVIDERS: ADMIT General Practice; ATTEND General Practice
PROC: 5A1D70Z Performance of Urinary Filtration, Intermittent, Less than 6 Hours Per Day (ICD-10-PCS; principal; 2023-09-10)
DX: I13.2 Hypertensive heart and chronic kidney disease with heart failure and with stage 5 chronic kidney disease, or end stage renal disease (principal); N18.6 End stage renal disease; I50.33 Acute on chronic diastolic (congestive) heart failure; J96.01 Acute respiratory failure with hypoxia; E87.3 Alkalosis; E11.22 Type 2 diabetes mellitus with diabetic chronic kidney disease; E78.5 Hyperlipidemia, unspecified; I25.10 Atherosclerotic heart disease of native coronary artery without angina pectoris; I95.89 Other hypotension; I89.0 Lymphedema, not elsewhere classified; G20.C Parkinsonism, unspecified; N40.0 Benign prostatic hyperplasia without lower urinary tract symptoms; E66.9 Obesity, unspecified; M10.9 Gout, unspecified; I73.9 Peripheral vascular disease, unspecified; D64.9 Anemia, unspecified; E11.51 Type 2 diabetes mellitus with diabetic peripheral angiopathy without gangrene; G47.33 Obstructive sleep apnea (adult) (pediatric); E11.42 Type 2 diabetes mellitus with diabetic polyneuropathy; Z86.16 Personal history of COVID-19; Z98.41 Cataract extraction status, right eye; Z87.891 Personal history of nicotine dependence; C50.922 Malignant neoplasm of unspecified site of left male breast; Z90.12 Acquired absence of left breast and nipple; Z99.2 Dependence on renal dialysis; Z92.3 Personal history of irradiation; Z79.4 Long term (current) use of insulin; Z79.899 Other long term (current) drug therapy; Z91.041 Radiographic dye allergy status

== ENCOUNTER → 2023-09-23 | Outpatient (CLI) | payer MEDICARE ==
[~2023-09-23] MED LIST changes: +ALBU8.5H INH; +ALLO100T PO; +AMLO1TAB25 PO; +AMOX875T2 PO; +ASPI81CH33 PO; +BENZ200C70 PO; +CHOL12508 PO; +HYDR25TA87 PO; +INSU100I24 SC; +INSU100I24 SQ; +METO1TAB32 PO; +SENN-186 PO; +SEVE0.8P PO; +TAMO20TA8 PO; -allopurinoL 100 MG TAB PO SCH
== END ==
LOC: M WUC 14:55
PROVIDERS: ATTEND Internal Medicine
DX: R06.00 Dyspnea, unspecified (principal); J91.8 Pleural effusion in other conditions classified elsewhere

== ENCOUNTER 2023-09-25 15:42 | Inpatient (IN) | payer MEDICARE ==
[~2023-09-25] VITALS: Ht 167.6 cm; Wt 61.5 kg
[2023-09-25 19:42] LABS: BASO # 0.1 10^3/uL (0.0-0.2); BASO % 0.7 % (0.0-1.0); EOS # 0.2 10^3/uL (0.0-0.5); EOS % 1.9 % (0.0-3.0); HEMATOCRIT 29.9 % (42.0-52.0); HEMOGLOBIN 9.6 g/dl (13.5-17.5); LYMPH # 1.2 10^3/uL (1.5-5.0); LYMPH % 12.4 % (24.0-44.0); MEAN CORPUSCULAR HEMOGLOBIN 30.3 pg (27.0-33.0); MEAN CORPUSCULAR HGB CONC 32.1 g/dl (32.0-36.5); MEAN CORPUSCULAR VOLUME 94.3 fl (80.0-96.0); MONO # 0.8 10^3/uL (0.0-0.8); NEUTROPHILS # 7.6 10^3/uL (1.5-8.5); NEUTROPHILS % 76.6 % (36.0-66.0); PLATELET COUNT, AUTOMATED 323 10^3/uL (150-450); RED BLOOD COUNT 3.17 10^6/uL (4.30-6.10); WHITE BLOOD COUNT 9.9 10^3/uL (4.0-10.0)
[2023-09-25 19:54] LABS: INR 1.02; PROTHROMBIN TIME 13.1 SECONDS (12.5-14.5)
[2023-09-25 20:24] LABS: ALBUMIN 2.5 G/DL (3.2-5.2); BILIRUBIN,DIRECT 0.3 MG/DL (<0.4); BILIRUBIN,TOTAL 0.8 MG/DL (0.3-1.2); CALCIUM LEVEL 8.2 MG/DL (8.3-10.6); CREATININE FOR GFR 2.24 MG/DL (0.70-1.30); GLOMERULAR FILTRATION RATE 30.5 (>42); POTASSIUM SERUM 3.6 MMOL/L (3.5-5.1); TOTAL PROTEIN 5.7 G/DL (5.7-8.2)
[2023-09-25 20:26] LABS: CK-MB VALUE MASS 1.1 NG/ML (<3.6)
[2023-09-25 20:29] LABS: FREE T4 1.15 NG/DL (0.89-1.76); THYROID STIMULATING HORMONE 4.341 uIU/ML (0.55-4.78)
[2023-09-25] MEDS: BENZONATATE 100MG CAPSULE PO ONE (20:30)
[2023-09-25 20:34] LABS: MB/CK RELATIVE INDEX 1.74 (< OR =4)
[2023-09-25] MEDS: FUROSEMIDE 40MG/4ML VIAL IV ONE (20:48)
[2023-09-25] MEDS ORDERED: ISOS1TAB36 PO (21:58)
[2023-09-25] MEDS ORDERED: AMLO1TAB24 PO (21:58)
[2023-09-25] MEDS ORDERED: ALLO100T PO (21:58)
[2023-09-25] MEDS ORDERED: VITA100093 PO (21:58)
[2023-09-25] MEDS ORDERED: SEVE400T PO (21:58)
[2023-09-25] MEDS ORDERED: FURO40TA2 PO (21:58)
[2023-09-25] MEDS ORDERED: ASPI81CH33 PO (21:58)
[2023-09-25] MEDS ORDERED: HOME MED LIST COMPLETE! XX SCH (22:00)
[2023-09-25] MEDS ORDERED: DEXTROSE 50% 50ML SYRINGE IV PRN (23:00)
[2023-09-25] MEDS ORDERED: GLUCAGON INJ 1MG VIAL SC PRN (23:00)
[2023-09-25] MEDS ORDERED: GLUCOSE 4GM CHEW TABLET PO PRN (23:00)
[2023-09-25] MEDS ORDERED: ONDANSETRON 4MG TAB PO PRN (23:00)
[2023-09-25 23:50] LABS: MAGNESIUM LEVEL 1.6 MG/DL (1.8-2.4); PHOSPHORUS LEVEL 2.1 MG/DL (2.4-5.1)
[2023-09-26] MEDS ORDERED: ATOR80TA59 PO (00:12)
[2023-09-26] MEDS ORDERED: HOME MED LIST COMPLETE! XX SCH (00:15)
[2023-09-26 00:49] VITALS: BP 162/68; TEMP 98.3; O2SAT 90
[2023-09-26] MEDS: BENZONATATE 100MG CAPSULE PO SCH (01:04)
[2023-09-26] MEDS: MAGNESIUM OXIDE 400MG TAB (MAG-OX) PO ONE (01:04)
[2023-09-26] MEDS: FUROSEMIDE 40MG/4ML VIAL IV ONE (01:05)
[2023-09-26] MEDS: ALBUTEROL 90 MCG/ACT 8GM HFA INHALER INH SCH (01:33)
[2023-09-26 03:46] VITALS: BP 163/79; TEMP 98.9; O2SAT 92
[2023-09-26 05:42] LABS: CHOLESTEROL RISK RATIO 2.34 (<5); HDL CHOLESTEROL 61.5 MG/DL (>40); LDL CHOLESTEROL 58.3 MG/DL (<100); NON-HDL-C 82.5 MG/DL
[2023-09-26] MEDS ORDERED: (RENVELA) SEVELAMER **CARBONate** 800 MG TAB PO SCH (08:00)
[2023-09-26 08:10] VITALS: BP 149/81; TEMP 97.8; O2SAT 93
[2023-09-26 09:25] VITALS: O2SAT 87
[2023-09-26 09:31] VITALS: O2SAT 94
[2023-09-26] MEDS: INSULIN LISPRO (NovoLOG) PER UNIT SC SCH (09:43)
[2023-09-26 09:44] VITALS: BP 149/81
[2023-09-26] MEDS: (RENVELA) SEVELAMER **CARBONate** 800 MG TAB PO SCH (09:44)
[2023-09-26] MEDS: VITAMIN D 1,000 INTERNATIONAL UNITS TABLET PO SCH (09:44)
[2023-09-26] MEDS: ISOSORBIDE MON. (IMDUR) 60MG XR TAB PO SCH (09:44)
[2023-09-26] MEDS: TAMOXIFEN CITRATE 10 MG TAB PO SCH (09:45)
[2023-09-26] MEDS: CALCITRIOL 0.25 MCG CAP (S0169) PO SCH (09:45)
[2023-09-26] MEDS: amLODIPine 5 MG TAB PO SCH (09:45)
[2023-09-26] MEDS ORDERED: HEPARIN 1,000UNITS/ML 10ML VIAL (FOR RADIOLOGY & DIALYSIS ONLY) XX SCH (12:25)
[2023-09-26] MEDS ORDERED: LIDOCAINE 1% SDV 5ML VIAL SC PRN (12:25)
[2023-09-26] MEDS ORDERED: HEPARIN 1,000UNITS/ML 10ML VIAL (FOR RADIOLOGY & DIALYSIS ONLY) IV PRN (12:25)
[2023-09-26] MEDS ORDERED: SODIUM CHLORIDE 0.9% 1000ML IV PRN (12:25)
[2023-09-26] MEDS ORDERED: SENNA 8.6 MG TAB (SENOKOT) PO SCH (21:00)
[2023-09-26] MEDS ORDERED: METOPROLOL SUCC *XL* 12.5MG PER 1/2 TAB (TopROL *XL*) PO SCH (21:00)
[2023-09-26] MEDS ORDERED: ASPIRIN 81MG CHEW TABLET PO SCH (21:00)
[2023-09-26] MEDS ORDERED: INSULIN LISPRO (NovoLOG) PER UNIT SC SCH (21:00)
[2023-09-26] MEDS ORDERED: PANTOPRAZOLE 40MG TAB (PROTONIX) PO SCH (21:00)
[2023-09-26] MEDS ORDERED: ATORVASTATIN 20 MG TAB PO SCH (21:00)
[2023-09-27] MEDS ORDERED: allopurinoL 100 MG TAB PO SCH (09:00)
== END 2023-09-26 18:27 | disposition home health service (06) | DRG 291 ==
LOC: M ED 15:42 → M ED INP 22:59 → M PCU 09-26 00:30
PROVIDERS: ADMIT Family Medicine; ATTEND Family Medicine
PROC: 5A1D70Z Performance of Urinary Filtration, Intermittent, Less than 6 Hours Per Day (ICD-10-PCS; principal; 2023-09-26)
DX: I13.2 Hypertensive heart and chronic kidney disease with heart failure and with stage 5 chronic kidney disease, or end stage renal disease (principal); I50.33 Acute on chronic diastolic (congestive) heart failure; N18.6 End stage renal disease; N25.81 Secondary hyperparathyroidism of renal origin; J91.8 Pleural effusion in other conditions classified elsewhere; E11.22 Type 2 diabetes mellitus with diabetic chronic kidney disease; M10.9 Gout, unspecified; I73.9 Peripheral vascular disease, unspecified; E11.51 Type 2 diabetes mellitus with diabetic peripheral angiopathy without gangrene; G47.33 Obstructive sleep apnea (adult) (pediatric); E11.42 Type 2 diabetes mellitus with diabetic polyneuropathy; E78.5 Hyperlipidemia, unspecified; N40.0 Benign prostatic hyperplasia without lower urinary tract symptoms; G20.C Parkinsonism, unspecified; R06.00 Dyspnea, unspecified; Z85.3 Personal history of malignant neoplasm of breast; Z86.16 Personal history of COVID-19; Z98.41 Cataract extraction status, right eye; Z90.12 Acquired absence of left breast and nipple; Z87.891 Personal history of nicotine dependence; Z79.82 Long term (current) use of aspirin; Z79.4 Long term (current) use of insulin; Z79.899 Other long term (current) drug therapy; Z91.041 Radiographic dye allergy status; Z11.52 Encounter for screening for COVID-19; Z99.2 Dependence on renal dialysis

== ENCOUNTER → 2023-10-13 | Outpatient (RCR) | payer MEDICARE ==
[~2023-10-13] MED LIST changes: +ATOR80TA59 PO; +PRED50TA PO; +SEVE400T PO; +VITA100093 PO
== END ==
LOC: M ONCR 09-23 10:27
PROVIDERS: ATTEND General Practice
DX: Z51.0 Encounter for antineoplastic radiation therapy (principal); C50.122 Malignant neoplasm of central portion of left male breast

== ENCOUNTER → 2023-10-14 | Outpatient (CLI) | payer MEDICARE ==
[~2023-10-14] MED LIST changes: -PRED50TA PO
== END ==
LOC: M WUC 15:23
PROVIDERS: ATTEND Internal Medicine
DX: R06.00 Dyspnea, unspecified (principal); R05.9 Cough, unspecified; J90 Pleural effusion, not elsewhere classified

== ENCOUNTER 2023-10-28 16:37 | Emergency (ER) | payer MEDICARE ==
[~2023-10-28] VITALS: Ht 167.6 cm; Wt 60.9 kg
[~2023-10-28 16:37] MED LIST changes: +MOXI1TAB PO; +PRED20TA PO; +PRED50TA PO
[2023-10-28 16:38] VITALS: TEMP 97.5
[2023-10-28 18:30] VITALS: BP 152/73; O2SAT 93
== END 2023-10-28 18:54 | disposition home or self-care (01) ==
LOC: M ED 16:37
DX: S00.03XA Contusion of scalp, initial encounter (principal); W18.39XA Other fall on same level, initial encounter; Y92.481 Parking lot as the place of occurrence of the external cause; Y93.9 Activity, unspecified; Y99.9 Unspecified external cause status; E11.9 Type 2 diabetes mellitus without complications; I10 Essential (primary) hypertension; Z99.2 Dependence on renal dialysis; Z86.73 Personal history of transient ischemic attack (TIA), and cerebral infarction without residual deficits; Z85.3 Personal history of malignant neoplasm of breast; M47.892 Other spondylosis, cervical region; J91.8 Pleural effusion in other conditions classified elsewhere; Z79.4 Long term (current) use of insulin; Z79.82 Long term (current) use of aspirin; Z79.899 Other long term (current) drug therapy; Z91.041 Radiographic dye allergy status

== ENCOUNTER → 2023-11-02 | Outpatient (CLI) | payer MEDICARE | LOC: M RAD 11:52 | PROVIDERS: ATTEND Internal Medicine | DX: N18.6 End stage renal disease (principal) ==

== ENCOUNTER → 2023-11-13 | Outpatient (RCR) | payer MEDICARE ==
[~2023-11-13] MED LIST changes: +COMBAER6 INH; +GUAI10LI PO
== END ==
LOC: M ONCR 10-14 15:41
PROVIDERS: ATTEND General Practice
DX: Z51.0 Encounter for antineoplastic radiation therapy (principal); C50.122 Malignant neoplasm of central portion of left male breast

== ENCOUNTER 2023-11-19 15:39 | Outpatient (RCR) | payer MEDICARE | END 2023-12-13 | LOC: M ONCR 15:39 | PROVIDERS: ATTEND General Practice | DX: Z51.0 Encounter for antineoplastic radiation therapy (principal); C50.122 Malignant neoplasm of central portion of left male breast ==

== ENCOUNTER → 2023-12-18 | Outpatient (CLI) | payer MEDICARE | LOC: M RAD 15:16 | PROVIDERS: ATTEND Internal Medicine Nephrology | DX: R05.3 Chronic cough (principal); C50.322 Malignant neoplasm of lower-inner quadrant of left male breast ==

== ENCOUNTER → 2023-12-24 | Outpatient (CLI) | payer MEDICARE ==
[~2023-12-24] MED LIST changes: +ELIQ2.5T PO
[2023-12-24 07:30] VITALS: TEMP 98.1
[2023-12-24 08:54] LABS: SOURCE, BODY FLUID TOT PROTEIN PLEURAL; TOTAL PROTEIN, BODY FLUID < 2.0 G/DL (NOT ESTABLISHED)
[2023-12-24 10:00] VITALS: BP 142/74; O2SAT 92
== END ==
LOC: M IRPRO 07:17
PROVIDERS: ATTEND Internal Medicine Nephrology
DX: J90 Pleural effusion, not elsewhere classified (principal)

== ENCOUNTER → 2024-01-29 | Outpatient (CLI) | payer MEDICARE ==
[~2024-01-29] MED LIST changes: +CETI10CH PO; +DELS30LI8 PO; +FIDA200TA PO; +FLON1SPR NARES; +GABA-1172 PO; -GABA-282 PO; +GUAI1SOL2 PO; +VANC1CAP6 PO
== END ==
LOC: M RAD 11:54
PROVIDERS: ATTEND Internal Medicine Pulmonary Disease
DX: J90 Pleural effusion, not elsewhere classified (principal)

== ENCOUNTER → 2024-02-01 | Outpatient (CLI) | payer MEDICARE ==
[~2024-02-01] MED LIST changes: -CETI10CH PO; -DELS30LI8 PO; -FIDA200TA PO; -FLON1SPR NARES; -GABA-1172 PO; +GABA-282 PO; -GUAI1SOL2 PO; -VANC1CAP6 PO
== END ==
LOC: M RAD 11:48
PROVIDERS: ATTEND Internal Medicine Pulmonary Disease
DX: J90 Pleural effusion, not elsewhere classified (principal); Z99.2 Dependence on renal dialysis

== ENCOUNTER → 2024-02-05 | Outpatient (CLI) | payer MEDICARE | LOC: M RAD 09:55 | PROVIDERS: ATTEND Internal Medicine | DX: K82.8 Other specified diseases of gallbladder (principal); J90 Pleural effusion, not elsewhere classified; K76.0 Fatty (change of) liver, not elsewhere classified; R18.8 Other ascites ==

== ENCOUNTER → 2024-02-10 | Outpatient (REF) | payer MEDICARE ==
[~2024-02-10] MED LIST changes: +CETI10CH PO; +DELS30LI8 PO; +FLON1SPR NARES; +GUAI1SOL2 PO
[2024-02-10 18:52] LABS: PERCENT SATURATION 15.7 % (19.7-50.0)
[2024-02-10 18:55] LABS: FERRITIN 1277.5 NG/ML (10.5-307.3)
== END ==
LOC: M LAB REF 16:22
PROVIDERS: ATTEND Internal Medicine
DX: N18.9 Chronic kidney disease, unspecified (principal); D63.1 Anemia in chronic kidney disease

== ENCOUNTER → 2024-02-22 | Outpatient (CLI) | payer MEDICARE | LOC: M RAD 15:43 | PROVIDERS: ATTEND Internal Medicine | DX: K81.0 Acute cholecystitis (principal) ==

== ENCOUNTER 2024-02-23 16:17 | Inpatient (IN) | payer MEDICARE ==
[~2024-02-23] VITALS: Ht 167.6 cm; Wt 53.5 kg
[~2024-02-23 16:17] MED LIST changes: -CETI10CH PO; -DELS30LI8 PO; -FLON1SPR NARES; -GUAI1SOL2 PO
[2024-02-23 18:49] LABS: BASO % 0.2 % (0.0-1.0); EOS % 0.1 % (0.0-3.0); HEMATOCRIT 32.3 % (42.0-52.0); HEMOGLOBIN 10.3 g/dl (13.5-17.5); LYMPH # 0.3 10^3/uL (1.5-5.0); LYMPH % 2.1 % (24.0-44.0); MEAN CORPUSCULAR HEMOGLOBIN 29.7 pg (27.0-33.0); MEAN CORPUSCULAR HGB CONC 31.9 g/dl (32.0-36.5); MEAN CORPUSCULAR VOLUME 93.1 fl (80.0-96.0); MONO % 6.5 % (2.0-8.0); NEUTROPHILS # 13.4 10^3/uL (1.5-8.5); NEUTROPHILS % 90.6 % (36.0-66.0); PLATELET COUNT, AUTOMATED 335 10^3/uL (150-450); RED BLOOD COUNT 3.47 10^6/uL (4.30-6.10); WHITE BLOOD COUNT 14.7 10^3/uL (4.0-10.0)
[2024-02-23 19:15] LABS: LIPASE 12 U/L (12-53)
[2024-02-23 19:18] LABS: ALBUMIN 1.7 G/DL (3.2-5.2); ALKALINE PHOSPHATASE 125 U/L (46-116); ALT/SGPT 13 U/L (7.0-40); AST/SGOT 25 U/L (<34); BILIRUBIN,DIRECT 0.2 MG/DL (<0.4); BILIRUBIN,TOTAL 0.6 MG/DL (0.3-1.2); BLOOD UREA NITROGEN 13 MG/DL (9-23); CALCIUM LEVEL 8.3 MG/DL (8.3-10.6); CARBON DIOXIDE LEVEL 31 MMOL/L (20-31); CHLORIDE LEVEL 101 MMOL/L (98-107); CREATININE FOR GFR 1.73 MG/DL (0.70-1.30); GLOMERULAR FILTRATION RATE 41.1 (>42); GLUCOSE, FASTING 156 MG/DL (74-106); POTASSIUM SERUM 5.2 MMOL/L (3.5-5.1); SODIUM LEVEL 133 MMOL/L (136-145); TOTAL PROTEIN 5.2 G/DL (5.7-8.2)
[2024-02-23 20:19] LABS: CK-MB VALUE MASS < 1.0 NG/ML (<3.6)
[2024-02-23 20:22] LABS: CPK CREATINE PHOSPHOKINASE 35 U/L (46-171); MB/CK RELATIVE INDEX 2.85 (< OR =4)
[2024-02-23] MEDS ORDERED: HUMA100I5 SC (23:15)
[2024-02-23] MEDS ORDERED: GUAI1SOL2 PO (23:16)
[2024-02-23] MEDS ORDERED: FLON1SPR NARES (23:19)
[2024-02-23] MEDS ORDERED: CETI10CH PO (23:19)
[2024-02-23] MEDS ORDERED: DELS30LI8 PO (23:19)
[2024-02-23] MEDS ORDERED: HOME MED LIST COMPLETE! XX SCH (23:40)
[2024-02-24 01:35] LABS: MAGNESIUM LEVEL 1.6 MG/DL (1.8-2.4); PHOSPHORUS LEVEL 2.1 MG/DL (2.4-5.1)
[2024-02-24] MEDS: FUROSEMIDE 20MG/2ML VIAL IV ONE (01:45)
[2024-02-24] MEDS ORDERED: GLUCOSE 4 GM CHEW PO PRN (02:00)
[2024-02-24] MEDS ORDERED: ALBUTEROL 90 MCG/ACT 8GM HFA INHALER INH PRN (02:00)
[2024-02-24] MEDS ORDERED: GLUCAGON INJ 1MG VIAL SC PRN (02:00)
[2024-02-24] MEDS ORDERED: DEXTROSE 50% 50ML SYRINGE IV PRN (02:00)
[2024-02-24] MEDS ORDERED: HEPARIN 1,000UNITS/ML 10ML VIAL (FOR RADIOLOGY & DIALYSIS ONLY) IV PRN (06:05)
[2024-02-24] MEDS ORDERED: SODIUM CHLORIDE 0.9% 1000ML IV PRN (06:05)
[2024-02-24 06:28] VITALS: BP 160/81; TEMP 97; O2SAT 100
[2024-02-24] MEDS: INSULIN LISPRO (NovoLOG) PER UNIT SC SCH ×2 (07:30→22:21)
[2024-02-24] MEDS: HEPARIN 1,000UNITS/ML 10ML VIAL (FOR RADIOLOGY & DIALYSIS ONLY) XX SCH (08:51)
[2024-02-24] MEDS: DEXTROMETHORPHAN 60MG/10ML SUSP 90ML BTL(DELSYM) PO SCH (09:00)
[2024-02-24 09:52] LABS: HEMATOCRIT 37.4 % (42.0-52.0); MEAN CORPUSCULAR HEMOGLOBIN 29.6 pg (27.0-33.0); MEAN CORPUSCULAR HGB CONC 32.1 g/dl (32.0-36.5); MEAN CORPUSCULAR VOLUME 92.1 fl (80.0-96.0); PLATELET COUNT, AUTOMATED 266 10^3/uL (150-450); RED BLOOD COUNT 4.06 10^6/uL (4.30-6.10); WHITE BLOOD COUNT 13.8 10^3/uL (4.0-10.0)
[2024-02-24 10:34] LABS: CALCIUM LEVEL 8.2 MG/DL (8.3-10.6); CHOLESTEROL RISK RATIO 2.02 (<5); GLOMERULAR FILTRATION RATE 34.8 (>42); HDL CHOLESTEROL 43.4 MG/DL (>40); LDL CHOLESTEROL 29.6 MG/DL (<100); MAGNESIUM LEVEL 1.4 MG/DL (1.8-2.4); NON-HDL-C 44.6 MG/DL; PHOSPHORUS LEVEL 2.4 MG/DL (2.4-5.1); POTASSIUM SERUM 3.9 MMOL/L (3.5-5.1)
[2024-02-24 12:30] VITALS: BP 142/65; TEMP 99.9; O2SAT 99
[2024-02-24] MEDS: CETIRIZINE (ZyrTEC) 5 MG/5 ML UDC DYE FREE PO SCH (12:39)
[2024-02-24] MEDS: VITAMIN D 1,000 INTERNATIONAL UNITS TABLET PO SCH (12:39)
[2024-02-24] MEDS: TAMOXIFEN CITRATE 10 MG TAB PO SCH (12:39)
[2024-02-24] MEDS: amLODIPine 5 MG TAB PO SCH (12:41)
[2024-02-24] MEDS: ISOSORBIDE MON. (IMDUR) 60MG XR TAB PO SCH (12:41)
[2024-02-24] MEDS: ACETAMINOPHEN TAB 650MG DOSE (2X325MG) PO PRN (12:41)
[2024-02-24] MEDS: allopurinoL 100 MG TAB PO SCH (12:42)
[2024-02-24] MEDS: FLUTICASONE PROP 0.05% NASAL SPRAY 16 GM (FLONASE) NARES SCH (12:42)
[2024-02-24] MEDS: APIXABAN 2.5 MG TAB (ELIQUIS) PO SCH (12:43)
[2024-02-24 16:20] VITALS: BP 139/63; TEMP 97.5; O2SAT 97
[2024-02-24] MEDS: MAGNESIUM OXIDE 400MG TAB (MAG-OX) PO SCH (17:25)
[2024-02-24 20:28] VITALS: BP 137/67; TEMP 97.5; O2SAT 97
[2024-02-24] MEDS: SENNA 8.6 MG TAB (SENOKOT) PO SCH (21:00)
[2024-02-24 21:46] VITALS: BP 140/60; TEMP 97.1; O2SAT 97
[2024-02-24] MEDS: ATORVASTATIN 20 MG TAB PO SCH (22:10)
[2024-02-24] MEDS: PANTOPRAZOLE 40MG TAB (PROTONIX) PO SCH (22:10)
[2024-02-24] MEDS: METOPROLOL SUCC *XL* 12.5MG PER 1/2 TAB (TopROL *XL*) PO SCH (22:11)
[2024-02-25 00:58] VITALS: BP 140/67; TEMP 98.4; O2SAT 95
[2024-02-25 04:59] VITALS: BP 132/66; TEMP 97.7; O2SAT 96
[2024-02-25] MEDS ORDERED: SODIUM CHLORIDE 0.9% 1000ML IV PRN (06:00)
[2024-02-25] MEDS ORDERED: HEPARIN 1,000UNITS/ML 10ML VIAL (FOR RADIOLOGY & DIALYSIS ONLY) IV PRN (06:00)
[2024-02-25 08:49] LABS: BASO % 0.1 % (0.0-1.0); EOS % 0.2 % (0.0-3.0); HEMATOCRIT 32.2 % (42.0-52.0); HEMOGLOBIN 10.2 g/dl (13.5-17.5); LYMPH # 0.4 10^3/uL (1.5-5.0); LYMPH % 1.9 % (24.0-44.0); MEAN CORPUSCULAR HEMOGLOBIN 29.2 pg (27.0-33.0); MEAN CORPUSCULAR HGB CONC 31.7 g/dl (32.0-36.5); MEAN CORPUSCULAR VOLUME 92.3 fl (80.0-96.0); MONO # 1.2 10^3/uL (0.0-0.8); MONO % 5.8 % (2.0-8.0); NEUTROPHILS # 18.2 10^3/uL (1.5-8.5); NEUTROPHILS % 91.4 % (36.0-66.0); RED BLOOD COUNT 3.49 10^6/uL (4.30-6.10); WHITE BLOOD COUNT 19.9 10^3/uL (4.0-10.0)
[2024-02-25 08:51] LABS: PLATELET COUNT, AUTOMATED 374 10^3/uL (150-450)
[2024-02-25 09:42] LABS: CALCIUM LEVEL 8.4 MG/DL (8.3-10.6); CREATININE FOR GFR 1.92 MG/DL (0.70-1.30); GLOMERULAR FILTRATION RATE 36.4 (>42); MAGNESIUM LEVEL 1.6 MG/DL (1.8-2.4); POTASSIUM SERUM 3.8 MMOL/L (3.5-5.1)
[2024-02-25] MEDS: HEPARIN 1,000UNITS/ML 10ML VIAL (FOR RADIOLOGY & DIALYSIS ONLY) XX SCH (10:58)
[2024-02-25 12:14] VITALS: BP 114/68; TEMP 97; O2SAT 98
[2024-02-25] MEDS: FIDAXOMICIN 200 MG TAB (DIFICID) PO SCH (12:31)
[2024-02-25 15:32] VITALS: BP 106/55; TEMP 97.6; O2SAT 96
[2024-02-25 19:39] VITALS: BP 154/74; TEMP 97; O2SAT 91
[2024-02-25 23:40] VITALS: BP 127/60; TEMP 97.5; O2SAT 97
[2024-02-26 04:06] VITALS: BP 123/63; TEMP 97.1; O2SAT 96
[2024-02-26] MEDS ORDERED: SODIUM CHLORIDE 0.9% 1000ML IV PRN (06:00)
[2024-02-26] MEDS ORDERED: HEPARIN 1,000UNITS/ML 10ML VIAL (FOR RADIOLOGY & DIALYSIS ONLY) IV PRN (06:00)
[2024-02-26 07:45] VITALS: BP 109/70; TEMP 98.3; O2SAT 94
[2024-02-26] MEDS ORDERED: DEXTROMETHORPHAN 60MG/10ML SUSP 90ML BTL(DELSYM) PO PRN (08:20)
[2024-02-26] MEDS: HEPARIN 1,000UNITS/ML 10ML VIAL (FOR RADIOLOGY & DIALYSIS ONLY) XX SCH (08:20)
[2024-02-26 08:43] LABS: BASO % 0.1 % (0.0-1.0); EOS # 0.1 10^3/uL (0.0-0.5); EOS % 0.8 % (0.0-3.0); HEMATOCRIT 31.8 % (42.0-52.0); HEMOGLOBIN 10.1 g/dl (13.5-17.5); LYMPH # 0.4 10^3/uL (1.5-5.0); LYMPH % 2.7 % (24.0-44.0); MEAN CORPUSCULAR HEMOGLOBIN 29.4 pg (27.0-33.0); MEAN CORPUSCULAR HGB CONC 31.8 g/dl (32.0-36.5); MEAN CORPUSCULAR VOLUME 92.7 fl (80.0-96.0); MONO # 0.7 10^3/uL (0.0-0.8); MONO % 5.1 % (2.0-8.0); NEUTROPHILS # 12.8 10^3/uL (1.5-8.5); NEUTROPHILS % 90.7 % (36.0-66.0); PLATELET COUNT, AUTOMATED 359 10^3/uL (150-450); RED BLOOD COUNT 3.43 10^6/uL (4.30-6.10); WHITE BLOOD COUNT 14.2 10^3/uL (4.0-10.0)
[2024-02-26 09:10] LABS: BLOOD UREA NITROGEN 21 MG/DL (9-23); CALCIUM LEVEL 7.8 MG/DL (8.3-10.6); CARBON DIOXIDE LEVEL 26 MMOL/L (20-31); CHLORIDE LEVEL 102 MMOL/L (98-107); CREATININE FOR GFR 2.51 MG/DL (0.70-1.30); GLOMERULAR FILTRATION RATE 26.7 (>42); GLUCOSE, FASTING 180 MG/DL (74-106); MAGNESIUM LEVEL 1.6 MG/DL (1.8-2.4); POTASSIUM SERUM 3.8 MMOL/L (3.5-5.1); SODIUM LEVEL 131 MMOL/L (136-145)
[2024-02-26 12:20] LABS: HEPATITIS B SURFACE ANTIGEN NEGATIVE (NEGATIVE)
[2024-02-26 12:25] VITALS: BP 150/69; TEMP 97.3; O2SAT 100
[2024-02-26 21:22] VITALS: BP 148/70; TEMP 97; O2SAT 97
[2024-02-26 23:54] VITALS: BP 158/72; TEMP 97.1; O2SAT 96
[2024-02-27 03:26] VITALS: BP 138/68; TEMP 97.1; O2SAT 97
[2024-02-27] MEDS ORDERED: SODIUM CHLORIDE 0.9% 1000ML IV PRN (06:00)
[2024-02-27] MEDS ORDERED: LIDOCAINE 1% SDV 5ML VIAL SC PRN (06:00)
[2024-02-27] MEDS ORDERED: HEPARIN 1,000UNITS/ML 10ML VIAL (FOR RADIOLOGY & DIALYSIS ONLY) IV PRN (06:00)
[2024-02-27 08:00] VITALS: BP 156/94; TEMP 98.3; O2SAT 96
[2024-02-27 08:01] LABS: BASO % 0.1 % (0.0-1.0); EOS # 0.1 10^3/uL (0.0-0.5); EOS % 1.1 % (0.0-3.0); HEMATOCRIT 35.4 % (42.0-52.0); HEMOGLOBIN 11.1 g/dl (13.5-17.5); LYMPH # 0.6 10^3/uL (1.5-5.0); LYMPH % 5.5 % (24.0-44.0); MEAN CORPUSCULAR HEMOGLOBIN 29.4 pg (27.0-33.0); MEAN CORPUSCULAR HGB CONC 31.4 g/dl (32.0-36.5); MEAN CORPUSCULAR VOLUME 93.7 fl (80.0-96.0); MONO # 0.6 10^3/uL (0.0-0.8); MONO % 5.7 % (2.0-8.0); NEUTROPHILS # 8.8 10^3/uL (1.5-8.5); NEUTROPHILS % 87.1 % (36.0-66.0); PLATELET COUNT, AUTOMATED 350 10^3/uL (150-450); RED BLOOD COUNT 3.78 10^6/uL (4.30-6.10)
[2024-02-27] MEDS: HEPARIN 1,000UNITS/ML 10ML VIAL (FOR RADIOLOGY & DIALYSIS ONLY) XX SCH (08:23)
[2024-02-27 08:31] LABS: CALCIUM LEVEL 8.6 MG/DL (8.3-10.6); GLOMERULAR FILTRATION RATE 34.8 (>42); MAGNESIUM LEVEL 1.9 MG/DL (1.8-2.4); POTASSIUM SERUM 4.7 MMOL/L (3.5-5.1)
[2024-02-27] MEDS ORDERED: FIDA200TA PO (11:02)
[2024-02-27 12:00] VITALS: BP 150/90; TEMP 98.2; O2SAT 96
[2024-02-27 12:55] VITALS: BP 150/90
[2024-02-27] MEDS ORDERED: VANC1CAP6 PO (15:07)
[2024-02-27] MEDS ORDERED: VANCOMYCIN 125MG CAPSULE PO SCH (17:00)
== END 2024-02-27 15:57 | disposition home health service (06) | DRG 291 ==
LOC: M ED 16:17 → M ED INP 23:41 → M PCU 02-24 05:25
PROVIDERS: ADMIT Family Medicine; ATTEND Family Medicine
PROC: B246ZZZ Ultrasonography of Right and Left Heart (ICD-10-PCS; principal; 2024-02-24)
PROC: 5A1D70Z Performance of Urinary Filtration, Intermittent, Less than 6 Hours Per Day (ICD-10-PCS; 2024-02-25)
DX: I13.2 Hypertensive heart and chronic kidney disease with heart failure and with stage 5 chronic kidney disease, or end stage renal disease (principal); N18.6 End stage renal disease; I50.33 Acute on chronic diastolic (congestive) heart failure; A04.72 Enterocolitis due to Clostridium difficile, not specified as recurrent; J90 Pleural effusion, not elsewhere classified; I48.91 Unspecified atrial fibrillation; Z99.2 Dependence on renal dialysis; E66.9 Obesity, unspecified; E11.51 Type 2 diabetes mellitus with diabetic peripheral angiopathy without gangrene; I73.9 Peripheral vascular disease, unspecified; G47.33 Obstructive sleep apnea (adult) (pediatric); E83.51 Hypocalcemia; E11.42 Type 2 diabetes mellitus with diabetic polyneuropathy; D64.9 Anemia, unspecified; E11.22 Type 2 diabetes mellitus with diabetic chronic kidney disease; E78.5 Hyperlipidemia, unspecified; E87.5 Hyperkalemia; N40.0 Benign prostatic hyperplasia without lower urinary tract symptoms; G20.C Parkinsonism, unspecified; I95.1 Orthostatic hypotension; Z85.3 Personal history of malignant neoplasm of breast; Z86.16 Personal history of COVID-19; Z90.49 Acquired absence of other specified parts of digestive tract; Z98.41 Cataract extraction status, right eye; Z79.01 Long term (current) use of anticoagulants; Z79.4 Long term (current) use of insulin; Z79.899 Other long term (current) drug therapy; Z91.041 Radiographic dye allergy status

== ENCOUNTER → 2024-02-23 | Outpatient (REF) | payer MEDICARE | LOC: M LAB REF 12:04 | PROVIDERS: ATTEND Internal Medicine Gastroenterology | DX: R19.4 Change in bowel habit (principal) ==

== ENCOUNTER → 2024-03-16 | Outpatient (REF) | payer MEDICARE ==
[~2024-03-16] MED LIST changes: +CETI10CH PO; +DELS30LI8 PO; +FIDA200TA PO; +FLON1SPR NARES; +GABA-1172 PO; -GABA-282 PO; +GUAI1SOL2 PO; +VANC1CAP6 PO
== END ==
LOC: M LAB REF 16:57
PROVIDERS: ATTEND Internal Medicine Nephrology
DX: N39.0 Urinary tract infection, site not specified (principal)

== ENCOUNTER → 2024-04-04 | Outpatient (CLI) | payer MEDICARE | LOC: M WUC 12:04 | PROVIDERS: ATTEND Internal Medicine | DX: R05.9 Cough, unspecified (principal); Z99.2 Dependence on renal dialysis ==

== ENCOUNTER → 2024-05-06 | Outpatient (REF) | payer MEDICARE | LOC: M LAB REF 17:05 | PROVIDERS: ATTEND Physician Assistant Medical | DX: H95.193 Other disorders following mastoidectomy, bilateral ears (principal) ==

== ENCOUNTER → 2024-05-20 | Outpatient (CLI) | payer MEDICARE ==
[~2024-05-20] MED LIST changes: +MIRT1TAB15 PO
== END ==
LOC: M ONCR 15:22
PROVIDERS: ATTEND General Practice
DX: Z08 Encounter for follow-up examination after completed treatment for malignant neoplasm (principal); Z85.3 Personal history of malignant neoplasm of breast; G47.00 Insomnia, unspecified; Z90.12 Acquired absence of left breast and nipple; Z92.3 Personal history of irradiation; Z79.810 Long term (current) use of selective estrogen receptor modulators (SERMs); Z87.891 Personal history of nicotine dependence; Z91.041 Radiographic dye allergy status; Z79.51 Long term (current) use of inhaled steroids; Z79.4 Long term (current) use of insulin; Z79.01 Long term (current) use of anticoagulants; Z79.899 Other long term (current) drug therapy

== ENCOUNTER → 2024-06-22 | Outpatient (CLI) | payer MEDICARE | LOC: M RAD 14:21 | PROVIDERS: ATTEND Internal Medicine | DX: R51.9 Headache, unspecified (principal) ==

== ENCOUNTER → 2024-08-05 | Outpatient (CLI) | payer MEDICARE | LOC: M RAD 09:18 | PROVIDERS: ATTEND Internal Medicine Pulmonary Disease | DX: J90 Pleural effusion, not elsewhere classified (principal) ==

== ENCOUNTER → 2024-09-28 | Outpatient (CLI) | payer MEDICARE | LOC: M SLEEP HO 10:58 | PROVIDERS: ATTEND Internal Medicine Pulmonary Disease | DX: G47.33 Obstructive sleep apnea (adult) (pediatric) (principal) ==

== ENCOUNTER → 2025-02-01 | Outpatient (CLI) | payer MEDICARE ==
[~2025-02-01] MED LIST changes: -AMBI10TA PO; -FLOM0.4C39 PO; +LANTINJ4; -PRED50TA PO; +PRED50TA57 PO; +TAMS-18 PO; +TAMS1CAP17; +ZOLP-533 PO
== END ==
LOC: M WHC 13:53
PROVIDERS: ATTEND Internal Medicine Medical Oncology
DX: C50.922 Malignant neoplasm of unspecified site of left male breast (principal); N62 Hypertrophy of breast; Z90.12 Acquired absence of left breast and nipple
CPT/HCPCS: 77065; G0279

== ENCOUNTER → 2025-04-21 | Outpatient (REF) | payer MEDICARE ==
[~2025-04-21] MED LIST changes: -CHOL12508 PO; +LOSA50TA28; +[UNRECOGNIZED DRUG - CODE] PO
== END ==
LOC: M LAB REF 10:57
PROVIDERS: ATTEND Internal Medicine
DX: R19.7 Diarrhea, unspecified (principal)

== ENCOUNTER → 2025-05-01 | Outpatient (CLI) | payer MEDICARE | LOC: M PLARAD 09:06 | PROVIDERS: ATTEND Student in an Organized Health Care Education/Training Program | DX: C50.822 Malignant neoplasm of overlapping sites of left male breast (principal) | CPT/HCPCS: 78815; A9552 ==

== ENCOUNTER → 2025-05-22 | Outpatient (CLI) | payer MEDICARE ==
[~2025-05-22] MED LIST changes: +HYDR50TA46; +LATANOPROST; +MAGN400T2 PO
== END ==
LOC: M EKG 11:19
PROVIDERS: ATTEND Nurse Practitioner Family
DX: I48.0 Paroxysmal atrial fibrillation (principal)